=== PATIENT | female | born 1990 | race Asian ===

== ENCOUNTER 2016-11-24 19:21 | Inpatient (IN) | payer MEDICAID ==
[~2016-11-24] VITALS: Ht 167.6 cm; Wt 78.2 kg
[2016-11-24 20:35] VITALS: BP 113/71; PULSE 76; RESP 18; Ht 167.6 cm; Wt 78.2 kg
[2016-11-24] MEDS ORDERED: PREN-93 PO (20:37)
[2016-11-24] MEDS ORDERED: MISOPROSTOL 200 MCG TAB PR PRN (21:00)
[2016-11-24] MEDS ORDERED: AMPICILLIN 2 GM/NS (PMX) 100 ML IV ONE (21:00)
[2016-11-24] MEDS ORDERED: HYDROCODONE/APAP (5/325) TAB PO PRN (21:00)
[2016-11-24] MEDS ORDERED: OXYTOCIN 30 UNITS/LR 500 ML IV SCH (21:00)
[2016-11-24] MEDS ORDERED: BUTORPHANOL 2 MG INJ IV PRN ×2 (21:00)
[2016-11-24] MEDS ORDERED: METHYLERGONOVINE 0.2 MG INJ IM PRN (21:00)
[2016-11-24] MEDS ORDERED: IBUPROFEN 600 MG TAB PO PRN (21:00)
[2016-11-24] MEDS ORDERED: LIDOCAINE 1% (MPF) 30 ML INJ INJ PRN (21:00)
[2016-11-24] MEDS ORDERED: OXYTOCIN 30 UNITS/LR 500 ML IV PRN (21:00)
[2016-11-24] MEDS ORDERED: CARBOPROST 250 MCG INJ IM PRN (21:00)
[2016-11-24] MEDS ORDERED: LACTATED RINGER'S 1,000 ML IV PRN (21:00)
[2016-11-24] MEDS: LACTATED RINGER'S 1,000 ML IV SCH ×2 (21:37→23:01)
[2016-11-24 22:17] LABS: BASOPHILS % 0.3 % (0.0-2.0); EOSINOPHILS # 0.1 10^3/ul (0.0-0.5); EOSINOPHILS % 0.8 % (0.0-7.0); HEMATOCRIT 35.1 % (37.0-47.0); LYMPHOCYTES # 2.9 10^3/ul (0.8-2.9); MEAN CORPUSCULAR HEMOGLOBIN 28.6 pg (29.0-33.0); MEAN CORPUSCULAR HGB CONC 34.2 g/dl (32.0-37.0); MEAN CORPUSCULAR VOLUME 83.6 fl (82.0-101.0); MEAN PLATELET VOLUME 11.6 fl (7.4-10.4); MONOCYTE # 0.8 10^3/ul (0.3-0.9); MONOCYTES % 7.9 % (0.0-11.0); NEUTROPHILS % 63.5 % (39.0-77.0); PLATELET COUNT 218 10^3/UL (140-415); RED CELL DISTRIBUTION WIDTH 14.1 % (11.5-14.5); WHITE BLOOD COUNT 10.6 10^3/ul (4.8-10.8)
[2016-11-24 22:21] LABS: ADD UMIC NO; UR ASCORBIC ACID NEGATIVE (NEGATIVE); UR BACTERIA FEW /HPF (NONE SEEN); UR BILIRUBIN (Dip) NEGATIVE (NEGATIVE); UR BLOOD (Dip) NEGATIVE (NEGATIVE); UR CLARITY SLIGHTLY CLOUDY (CLEAR); UR COLOR YELLOW (YELLOW); UR GLUCOSE (Dip) NEGATIVE (NEGATIVE); UR KETONES (Dip) NEGATIVE (NEGATIVE); UR LEUKOCYTE ESTERASE (Dip) NEGATIVE Leu/ul (NEGATIVE); UR MUCUS FEW /HPF (NONE SEEN); UR NITRITE (Dip) NEGATIVE (NEGATIVE); UR RBC 7 /HPF (0-5); UR SPECIFIC GRAVITY (Dip) 1.016 (1.003-1.030); UR SQUAMOUS EPITHELIAL CELL FEW /HPF (FEW); UR TOTAL PROTEIN (Dip) NEGATIVE (NEGATIVE); UR UROBILINOGEN (Dip) NEGATIVE (NEGATIVE)
[2016-11-24 22:32] LABS: INR 0.89; PT RATIO 0.9
[2016-11-24 22:33] LABS: PARTIAL THROMBOPLASTIN TIME 23.7 Sec (25.0-35.0)
[2016-11-25] MEDS ORDERED: AMPICILLIN 1 GM/NS (PMX) 50 ML IV SCH (01:00)
[2016-11-25] MEDS: OXYTOCIN 30 UNITS/LR 500 ML IV SCH ×2 (01:09→01:32)
[2016-11-25] MEDS ORDERED: FENTAnyl 50 MCG/ML VIAL ONE (01:12)
[2016-11-25] MEDS ORDERED: FENTAnyl 50 MCG/ML VIAL IV ONE (01:30)
[2016-11-25] MEDS: DEXTROSE 5%-LR 1,000 ML IV SCH ×2 (01:51→09:51)
--- NOTE | 2016-11-25 01:51 | LDN ---
Date/Time of Note Date/Time of Note DATE: 11/25/16 TIME: 01:49 Delivery Summary 26 y/o G1 with SIUP at 39 2/7 wks delivered a female over mediolateral episiotomy at 01:01. Weight: 3920 (8 lbs 10 oz) Placenta Delivered: Spontaneously Meconium: none Episiotomy: Yes (mediolateral) Estimated blood loss: 250 Sponge & Needle done & correct: Yes All needle counts correct: Yes Any foreign bodies felt in the: No Problems: Infant Delivery Information Sex Sex: female Apgars 1 Minute: 9 5 Minute: 9 10 Minute: 10 Suctioning Nose & mouth suctioned at naif: Yes Umbilical Cord Umbilical cord with: 3 Vessels Cord presentations: no nuchal cord Cord Blood was obtained: Yes EVARISTO COLLAZO Nov 25, 2016 01:51
[2016-11-25] MEDS ORDERED: MISOPROSTOL 200 MCG TAB PR PRN (02:00)
[2016-11-25] MEDS ORDERED: WITCH HAZEL/GLYCERIN PAD PR PRN (02:00)
[2016-11-25] MEDS ORDERED: BENZOCAINE 20% 56 ML SPRAY TOP PRN (02:00)
[2016-11-25] MEDS ORDERED: ONDANSETRON 4 MG INJ IV PRN (02:00)
[2016-11-25] MEDS ORDERED: CARBOPROST 250 MCG INJ IM PRN (02:00)
[2016-11-25] MEDS ORDERED: ZOLPIDEM 5 MG TAB PO PRN (02:00)
[2016-11-25] MEDS ORDERED: METHYLERGONOVINE 0.2 MG INJ IM PRN (02:00)
[2016-11-25] MEDS ORDERED: LANOLIN 7 GM TUBE TOP PRN (02:00)
[2016-11-25] MEDS ORDERED: OXYTOCIN 30 UNITS/LR 500 ML IV PRN (02:00)
[2016-11-25] MEDS ORDERED: OXYCODONE/ASPIRIN (4.88/325) TAB PO PRN (02:00)
[2016-11-25] MEDS ORDERED: DIPHENHYDRAMINE 50 MG INJ IV PRN (02:00)
[2016-11-25] MEDS ORDERED: ACETAMINOPHEN 325 MG TAB PO PRN (02:00)
[2016-11-25] MEDS ORDERED: DIBUCAINE 1% 30 GM OINT PR PRN (02:00)
[2016-11-25 03:35] VITALS: BP 112/64; PULSE 78; RESP 18
--- NOTE | 2016-11-25 04:38 | HP ---
Date/Time of Note Date/Time of Note DATE: 11/25/16 TIME: 04:31 OB - History Hx of Present Free Text/Dictation 26 y/o G1 with SIUP at 39 2/7 wks was admitted for having UCS. She has been receiving her care with Dr. Field. She states good movement. She denies nausea, vomiting, shortness of breath, chest pain, and abdominal pain between contractions, headache, visual changes, vaginal bleeding. I saw and exam the patient before her delivery : 1 Care: Good Care Ultrasounds: Normal mid trimester US Obstetrical Complications: None Past Family/Social History * Past Medical, Surgical, Family and Obstetric Histories reviewed from chart. Blood Type: A+ Rubella: immune RPR/VDRL: Negative GBS Status: Negative HBsAG: Negative OB Admission Exam Vital Signs Vital Signs Vital Signs Date Time Temp Pulse Resp B/P Pulse Ox O2 Delivery O2 Flow Rate FiO2 11/24/16 20:35 98.4 76 18 113/71 Physical Exam Heart: Rhythm Normal Lungs: Clear Abdomen: WNL Extremities: Normal Cervical Dilatation: 10cm Effacement: 100% Station: +1 Membranes: Ruptured Amniotic Fluid: Clear Heart Rate: 140's Accelerations: Accelerations Present Decelerations: No Decelerations Varibility: Moderate Contractions on Admission: < 5 Minutes Apart Intensity: Firm Last 72 hours Lab Results CBC & BMP 11/24/16 21:37 OB Assessment/Plan Other plan: 26 y/o G1 with SIUP at 39 2/7 wks - FHR: No sign of metabolic acidosis- Category I - Continious EFM, toco - CBC, blood type and screen done - Analgesia options with R/B/A discussed in detail with patient. She is not interested - Please see the orders - A+/Rubella: Immune/GBS negative Admission, procedures, expectations, risks and possible complications have been discussed in detail with the patient. Risk of vaginal delivery including but not limited to bleeding, infection, cervical laceration, placental retention, injury to fetus, blood transfusion, blood transfusion related infection, risk of anesthesia, adhesion, cervical laceration, episiotomy/laceration, possible delivery with risk of bleeding, infection, injury to other organs ( bowel, bladder, ureter, vessels, nerves), injury to fetus, blood transfusion, blood transfusion related infection, risk of anesthesia, scar and hernia formation, needs for future , removal of uterus or any other indicated surgery discussed with the patient. She expressed understanding and repeats the risks. All of her questions were answered; all appropriate consents will be signed. PHYSICIAN'S VERIFICATION OF INFORMED CONSENT: The patient was counseled regarding the procedure, its indications, risks, potential complications and alternatives and any questions were answered. Consent was obtained. PLANNED PROCEDURE/TREATMENT: Vaginal delivery with possible vacuum/forceps delivery episiotomy, repair of laceration possible delivery PHYSICIAN'S VERIFICATION OF INFORMED CONSENT FOR BLOOD TRANSFUSION: There is a reasonable possibility that blood transfusion will be necessary as a result of the patient's procedure. 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 Al questions have been answered to the patient's/patients legal representatives satisfaction. INFORMED CONSENT: The patient has been informed of: - The nature of the proposed care, treatment, services, medic- Potential benefits, risks or side effects, including potential problems related to recuperation. - The likelihood of achieving care treatment and service goals. - Reasonable alternatives to the proposed care, treatment and service. - The relevant risks, benefits and side effects related to alternatives, including the possible results of not receiving care, treatment and services. - When indicated, any limitations on the confidentiality of information learned from or about the patient. - If appropriate, the risks, benefits and alternatives of the drugs to be used for sedation/analgesia including moderate sedation. - If appropriate, patient has been provided information on the risks, benefits and alternatives to the transfusion of blood and/or blood products. EVARISTO COLLAZO Nov 25, 2016 04:38
[2016-11-25] MEDS: IBUPROFEN 600 MG TAB PO SCH ×3 (06:02→18:16)
[2016-11-25] MEDS: LACTATED RINGER'S 1,000 ML IV* SCH ×2 (06:03→09:51)
[2016-11-25 08:00] VITALS: BP 100/57; PULSE 78; RESP 17
[2016-11-25] MEDS: PRENATAL VITAMIN PO SCH (09:16)
[2016-11-25 12:00] VITALS: BP 91/60; PULSE 82; RESP 16
[2016-11-25 16:00] VITALS: BP 116/76; PULSE 88; RESP 17
[2016-11-25 20:00] VITALS: BP 97/57; PULSE 86; RESP 20
[2016-11-25] MEDS: SENNA/DOCUSATE NA (8.6MG/50MG) TAB PO PRN (21:59)
[2016-11-26] MEDS: IBUPROFEN 600 MG TAB PO SCH ×4 (01:04→17:46)
[2016-11-26 04:00] VITALS: BP 98/57; PULSE 80; RESP 18
[2016-11-26 08:15] VITALS: BP 98/63; PULSE 76; RESP 16
[2016-11-26] MEDS: PRENATAL VITAMIN PO SCH (08:48)
[2016-11-26 10:29] LABS: BASOPHILS % 0.2 % (0.0-2.0); EOSINOPHILS # 0.2 10^3/ul (0.0-0.5); EOSINOPHILS % 1.6 % (0.0-7.0); HEMATOCRIT 32.5 % (37.0-47.0); HEMOGLOBIN 10.3 g/dl (12.0-16.0); LYMPHOCYTES # 2.8 10^3/ul (0.8-2.9); LYMPHOCYTES % 26.4 % (15.0-51.0); MEAN CORPUSCULAR HEMOGLOBIN 27.6 pg (29.0-33.0); MEAN CORPUSCULAR HGB CONC 31.7 g/dl (32.0-37.0); MEAN CORPUSCULAR VOLUME 87.1 fl (82.0-101.0); MEAN PLATELET VOLUME 11.3 fl (7.4-10.4); MONOCYTE # 0.7 10^3/ul (0.3-0.9); MONOCYTES % 6.4 % (0.0-11.0); NEUTROPHILS % 64.4 % (39.0-77.0); PLATELET COUNT 210 10^3/UL (140-415); RED BLOOD COUNT 3.73 10^6/ul (4.20-5.40); RED CELL DISTRIBUTION WIDTH 14.6 % (11.5-14.5); WHITE BLOOD COUNT 10.7 10^3/ul (4.8-10.8)
[2016-11-26 12:34] LABS: RUBELLA ANTIBODY - IGG <0.90 index
[2016-11-26 16:00] VITALS: BP 104/74; PULSE 78; RESP 17
[2016-11-26] MEDS ORDERED: IBUP-1542 PO ×2 (18:56→20:06)
--- NOTE | 2016-11-26 18:57 | PD.PPDC ---
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
[2016-11-26 19:45] VITALS: BP 101/67; PULSE 84; RESP 18
--- NOTE | 2016-11-26 19:56 | DS ---
Date/Time of Note Date/Time of Note home next day DATE: 11/26/16 TIME: 19:55 Obstetrical Discharge Record Final Diagnosis Final Diagnosis: Term delivered Other Final Diagnosis S/P vaginal delivery Vaginal Delivery Obstetrical Delivery: Spontaneous Condition on Discharge Physical Assessment Last Vitals: see nurses notes Voiding: Yes Bowel Movement: Yes Breast: Soft, non-tender, Filling Fundus: Firm Abdomen and Incision: soft BS + Episiotomy: Healing Calf Tenderness: No Patient Condition: Good ALEK SHRESTHA MD Nov 26, 2016 19:56
[2016-11-27] MEDS: IBUPROFEN 600 MG TAB PO SCH ×3 (03:11→12:11)
[2016-11-27 03:48] VITALS: BP 107/65; PULSE 84; RESP 18
[2016-11-27 07:30] VITALS: BP 113/74; PULSE 79; RESP 18
[2016-11-27] MEDS ORDERED: MEASLES,MUMPS,RUBELLA VACCINE INJ SC* ONE (09:00)
[2016-11-27] MEDS ORDERED: DIPHTH/TET/ACEL PERTUSS (ADULT) 0.5 ML VIAL IM* ONE (09:00)
[2016-11-27] MEDS: PRENATAL VITAMIN PO SCH (09:23)
[2016-11-27] MEDS: SENNA/DOCUSATE NA (8.6MG/50MG) TAB PO PRN (09:23)
== END 2016-11-27 13:30 | disposition home or self-care (01) | DRG 775 ==
LOC: L-D 19:21 → OBT 19:21 → L-D 20:27 → OBT 21:15 → L-D 22:58 → PP1 11-25 03:27
PROVIDERS: ADMIT Obstetrics & Gynecology; ATTEND Obstetrics & Gynecology
PROC: 10E0XZZ Delivery of Products of Conception, External Approach (ICD-10-PCS; principal; 2016-11-25)
PROC: 0W8NXZZ Division of Female Perineum, External Approach (ICD-10-PCS; 2016-11-25)
PROC: 3E033VJ Introduction of Other Hormone into Peripheral Vein, Percutaneous Approach (ICD-10-PCS; 2016-11-25)
DX: O80 Encounter for full-term uncomplicated delivery (principal); Z37.0 Single live birth; Z3A.39 39 weeks gestation of pregnancy
CPT/HCPCS: 36415; 81001; 81003; 84112; 85025; 85610; 85730; 86592; 86762; 86900; 86901; 87086; 87340; 90715; 96360; 99464; G0463; J0290; J2590; J3010; J7120; J7121

== ENCOUNTER 2018-03-01 16:31 | Outpatient (CLI) | END 2018-03-01 20:00 | disposition home or self-care (01) ==

== ENCOUNTER 2018-03-08 08:40 | Inpatient (IN) | END 2018-03-10 14:30 | disposition home or self-care (01) | DRG 833 ==

== ENCOUNTER 2018-04-04 09:30 | Inpatient (IN) | END 2018-04-05 16:45 | disposition home or self-care (01) | DRG 831 ==

== ENCOUNTER 2018-04-27 20:20 | Inpatient (IN) | payer MEDICAID ==
[~2018-04-27] VITALS: Ht 167.6 cm; Wt 74.9 kg
[~2018-04-27 20:20] MED LIST: NIFE10CA PO; PREN-93 PO
[2018-04-27] MEDS ORDERED: ACETAMINOPHEN 325 MG TAB PO PRN (21:30)
[2018-04-27] MEDS ORDERED: MAGNESIUM SULFATE 4 GM/100 ML 100 ML IV ONE (21:30)
[2018-04-27] MEDS ORDERED: AL HYDROX/MG HYDROX/SIMETH 30 ML CUP PO PRN (21:30)
[2018-04-27] MEDS ORDERED: ONDANSETRON 4 MG INJ IV PRN (21:30)
[2018-04-27] MEDS: LACTATED RINGER'S 1,000 ML IV SCH (22:07)
[2018-04-27] MEDS: MAGNESIUM SULFATE 20 GM/500 ML 500 ML IV SCH (22:49)
[2018-04-28] MEDS: BETAMET NA PHOS/AC(6 MG/ML) 2 ML INJ SYG IM SCH (00:59)
[2018-04-28 01:21] VITALS: Ht 167.6 cm; Wt 74.9 kg
[2018-04-28] MEDS: PRENATAL VITAMIN PO SCH (08:29)
[2018-04-28] MEDS: DOCUSATE SODIUM 100 MG CAP PO SCH ×2 (08:29→22:00)
[2018-04-28] MEDS: MAGNESIUM SULFATE 20 GM/500 ML 500 ML IV SCH ×2 (08:36→18:28)
[2018-04-28] MEDS: LACTATED RINGER'S 1,000 ML IV SCH ×2 (10:41→23:36)
--- NOTE | 2018-04-28 15:02 | HP ---
Date/Time of Note Date/Time of Note DATE: 04/28/18 TIME: 14:57 OB - History Hx of Present Free Text/Dictation 28-year-old female 2 para 1 at 31 weeks gestation admitted complaining of onset of vaginal bleeding in p.m. of the admission day Upon examination and OB triage minimal vaginal bleeding was observed Patient has history of complete placenta previa and hospitalization in February 2018 Patient was told by perinatology clinic that placenta previa is resolved Last Menstrual Period: August 15, 2017 : 2 Para: 1 Care: Good Care Ultrasounds: Normal mid trimester US Obstetrical Complications: Other (Placenta previa) Medical Complications: None Past Family/Social History * Past Medical, Surgical, Family and Obstetric Histories reviewed from chart. Blood Type: A+ Rubella: immune RPR/VDRL: Negative GBS Status: Unknown HBsAG: Negative OB Admission Exam Physical Exam HEENT: WNL Heart: Rhythm Normal Lungs: Clear, Equal Abdomen: WNL Extremities: Normal Reflexes: Normal Membranes: Intact Heart Rate: 140's Accelerations: Accelerations Present Decelerations: No Decelerations Varibility: Moderate Contractions on Admission: 6-10 Minutes Apart Date/Time Contractions Began: April 27, 1999 2:41 PM Frequency of Contractions: Every 5-10 minutes Duration: Over 40 seconds Intensity: Mild Last 72 hours Lab Results CBC & BMP 04/27/18 21:55 Magnesium Level Test 04/28/18 04:03 04/28/18 10:10 Magnesium Level 5.2 *H 5.8 *H OB Assessment/Plan Reason for admission: labor Other Assessment: Placenta previa that could have been resolved 34+ weeks gestation Other plan: She was admitted for treatment of contractions Procardia was ALEK Murillo MD Apr 28, 2018 15:02
--- NOTE | 2018-04-28 15:03 | PN ---
Date/Time of Note Date/Time of Note DATE: 04/28/18 TIME: 15:02 OB Subjective Subjective Subjective No more complaint of vaginal bleeding OB Objective Objective Objective Vital signs are stable as well as general physical exam On electronic monitoring no uterine contractions seen OB Assessment/Plan Reason for admission: labor Other Assessment: Possible placenta previa at 34+ weeks of vaginal bleeding Other plan: Continue tocolysis of contraction Consider giving steroids Obtained perinatology ultrasound results ALEK SHRESTHA MD Apr 28, 2018 15:03
[2018-04-29] MEDS: BETAMET NA PHOS/AC(6 MG/ML) 2 ML INJ SYG IM SCH (00:33)
[2018-04-29] MEDS: MAGNESIUM SULFATE 20 GM/500 ML 500 ML IV SCH ×2 (04:04→13:20)
[2018-04-29] MEDS: DOCUSATE SODIUM 100 MG CAP PO SCH (09:09)
[2018-04-29] MEDS: PRENATAL VITAMIN PO SCH (09:09)
[2018-04-29] MEDS ORDERED: NIFEdipine 10 MG CAP PO SCH (14:00)
--- NOTE | 2018-04-29 15:07 | DS ---
Date/Time of Note Date/Time of Note DATE: 04/29/18 TIME: 15:06 Obstetrical Discharge Record Final Diagnosis Final Diagnosis: not delivered Other Final Diagnosis uterine contractions Complications Labor Third Trimester Bleeding: Previa Condition on Discharge Physical Assessment Last Vitals: See nurse's note Voiding: Yes Bowel Movement: Yes Breast: Soft, non-tender, Filling Fundus: Other () Abdomen and Incision: Abdomen is gravid fundal height is 35 heart tones are reactive Episiotomy: Not applicable Calf Tenderness: No Patient Condition: Good ALEK SHRESTHA MD Apr 29, 2018 15:07
--- NOTE | 2018-04-29 15:09 | DS ---
Date/Time of Note Date/Time of Note DATE: 04/29/18 TIME: 15:07 Discharge Summary Admission/Discharge Info Admit Date/Time Apr 27, 2018 at 21:15 Discharge Date/Time April 29, 2018 Discharge Diagnosis contractions possible previa Patient Condition: Good Hx of Present Illness 28-year-old female had contractions and vaginal bleeding Tocolysis of uterine contraction was performed and patient stayed stable Hospital Course Hospital course remained uncomplicated patient tolerated diet well Discharge home on his second hospitalization day with good prognosis and cond ition Home Meds Active Scripts Nifedipine* (Procardia*) 10 Mg Capsule, 20 MG PO Q6, #120 CAP 4 Refills Prov:ALEK SHRESTHA MD 04/05/18 Reported Medications Vit No.124/Iron/FA ( Vitamin Tablet) 1 Each Tablet, 1 EACH PO, TAB 11/24/16 Follow-up Plan Refer to clinic following day for follow-up Primary Care Provider Care Physician No Primary Time spent on discharge: > 30 minutes Pending Labs Laboratory Tests Test 04/28/18 16:01 04/28/18 21:54 04/29/18 04:21 04/29/18 09:49 Magnesium 6.1 5.9 6.3 6.2 Level mg/dl (1.7-2.5) mg/dl (1.7-2.5 mg/dl (1.7-2.5 mg/dl (1.7-2.5 ) ) ) ALEK SHRESTHA MD Apr 29, 2018 15:09
--- NOTE | 2018-04-29 15:12 | PD.PPDC ---
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 possible previa Condition [id number] Patient Condition: Uygjs0m Good Activity/Restrictions [id number] Activity: Gruuk9m Bedrest May Shower [id number] Restrictions: [id number] No Exercising No Lifting Nothing in the Vagina No [place] Follow-up Follow-up with Physician: 1, Day/Days (In clinic) Return to clinic for Comment: Pelvic and bedrest until delivery ALEK SHRESTHA MD Apr 29, 2018 15:12
[2018-04-29] MEDS ORDERED: NIFE10CA PO (15:13)
== END 2018-04-29 16:03 | disposition home or self-care (01) | DRG 832 ==
LOC: OBT 20:20 → L-D 20:20 → OBT 21:15 → L-D 21:15 → PP1 23:34
PROVIDERS: ADMIT Obstetrics & Gynecology; ATTEND Obstetrics & Gynecology
DX: O46.93 Antepartum hemorrhage, unspecified, third trimester (principal); O47.03 False labor before 37 completed weeks of gestation, third trimester; Z3A.31 31 weeks gestation of pregnancy
CPT/HCPCS: 81001; 83735; 85025; 85610; 85730; 86850; 86900; 86901; 87086; G0463; J0702; J3475; J7120

== ENCOUNTER 2018-04-30 16:56 | Inpatient (IN) | payer MEDICAID ==
[~2018-04-30] VITALS: Ht 167.6 cm; Wt 75.5 kg
[2018-04-30 17:12] VITALS: BP 99/61; PULSE 93; Ht 167.6 cm; Wt 75.5 kg
[2018-04-30] MEDS ORDERED: TERBUTALINE 1 MG/ML INJ SC ONE ×2 (18:30→21:00)
[2018-04-30] MEDS: LACTATED RINGER'S 1,000 ML IV SCH (21:24)
[2018-05-01] MEDS: LACTATED RINGER'S 1,000 ML IV SCH ×2 (03:14→10:57)
[2018-05-01] MEDS ORDERED: NIFEdipine 10 MG CAP PO SCH (09:00)
[2018-05-01] MEDS ORDERED: PRENATAL VITAMIN PO SCH (09:00)
--- NOTE | 2018-05-01 16:47 | HP ---
Date/Time of Note Date/Time of Note Late entry DATE: 05/01/18 TIME: 16:35 OB - History Hx of Present Free Text/Dictation 28-year-old female 2 para 1 readmitted for complaint of vaginal spotting Patient was seen in the clinic and was sent from clinic for evaluation Discharge from hospital day prior Last Menstrual Period: August 15, 2017 : 2 Para: 1 Care: Good Care Ultrasounds: Abnormal US findings Abnormal Ultrasound Findings: Placenta previa Most recent ultrasound showing marginal previa Obstetrical Complications: Other (Placenta previa) Medical Complications: None Past Family/Social History * Past Medical, Surgical, Family and Obstetric Histories reviewed from [facility]. Blood Type: A+ Rubella: immune RPR/VDRL: Negative GBS Status: Unknown HBsAG: Negative OB Admission Exam Vital Signs Vital Signs Vital Signs Date Temp Pulse Resp B/P (MAP) Pulse Ox O2 O2 Flow FiO2 Time Delivery Rate 04/30/18 98.3 93 99/61 (74) Room Air 17:12 Physical Exam HEENT: WNL Heart: Rhythm Normal Lungs: Clear, Equal Abdomen: WNL Extremities: Normal Reflexes: Normal Cervical Dilatation: None (Vaginal exam deferred) Membranes: Intact Heart Rate: 140's Accelerations: Accelerations Present Decelerations: No Decelerations Varibility: Marked Contractions on Admission: 6-10 Minutes Apart Date/Time Contractions Began: 04/30/2018 Frequency of Contractions: Every 6 1015 minutes Duration: Over 30 seconds Intensity: Mild Last 72 hours Lab Results CBC & BMP 04/30/18 20:40 OB Assessment/Plan Other Assessment: Vaginal spotting 35+ weeks gestation Other plan: We will continue to observe on p.o. nifedipine Additional subcutaneous terbutaline was given to stop the contractions Will monitor vaginal bleeding and uterine contraction ALEK SHRESTHA MD May 01, 2018 16:45
--- NOTE | 2018-05-01 16:49 | DS ---
Date/Time of Note Date/Time of Note DATE: 05/01/18 TIME: 16:48 Obstetrical Discharge Record Final Diagnosis Final Diagnosis: not delivered Other Final Diagnosis 35+ weeks gestation uterine contractions and vaginal spotting Complications Third Trimester Bleeding: Previa Tocolytics: Other (Nifedipine) Condition on Discharge Physical Assessment Last Vitals: See nurse's notes Voiding: Yes Bowel Movement: Yes Breast: Soft, non-tender, Filling Fundus: Other () Abdomen and Incision: Abdomen is gravid fundal height is 36 heart tones are reactive Episiotomy: Not applicable Calf Tenderness: No Patient Condition: Good (Patient totally stopped vaginal bleeding and uterine contractions, will follow as outpatient) ALEK SHRESTHA MD May 01, 2018 16:49
--- NOTE | 2018-05-01 16:52 | PD.PPDC ---
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 Provider Information Physician Information 48-year-old female admitted for vaginal spotting and contractions which were resolved Diagnosis [id number] Final Diagnosis: Xekar7g contractions and vaginal spotting, marginal placenta previa Condition [id number] Patient Condition: Zglak9e Good (Patient totally stopped vaginal bleeding and uterine contractions, will follow as outpatient) Diet Gxcpa6Tm Diet: Fjebk4k Resume Regular Diet Activity/Restrictions [id number] Activity: Ilgen8d Bedrest May be up to bathroom May be up for meals May Shower [id number] Restrictions: Bzozr6y No Exercising No Lifting Minimize Walking Nothing in the Vagina No [place] No Tampons, douche Follow-up Follow-up with Physician: 3, Day/Days (In OB triage for nonstress test) Return to clinic for Comment: Refer back for profuse vaginal bleeding Patient was notified that the section is scheduled for 05/13 ALEK SHRESTHA MD May 01, 2018 16:52
== END 2018-05-01 21:20 | disposition home or self-care (01) | DRG 833 ==
LOC: OBT 16:56 → L-D 16:57 → OBT 20:34 → PP1 22:47
PROVIDERS: ADMIT Obstetrics & Gynecology; ATTEND Obstetrics & Gynecology
DX: O47.03 False labor before 37 completed weeks of gestation, third trimester (principal); Z3A.35 35 weeks gestation of pregnancy
CPT/HCPCS: 76818; 81001; 85025; 85610; 85730; G0463; J3105; J7120

== ENCOUNTER 2018-05-04 08:58 | Outpatient (CLI) | payer MEDICAID ==
[~2018-05-04] VITALS: Ht 167.6 cm; Wt 72.5 kg
[2018-05-04 09:18] VITALS: Ht 167.6 cm; Wt 72.5 kg
[2018-05-04 09:19] VITALS: BP 98/63; PULSE 94; RESP 20
--- NOTE | 2018-05-04 10:13 | PN ---
Triage Information Date/Time Reason for visit: Marginal plaventa for NST BPP Weeks of Gestation 35+ /Para 2/1 Diabetes: none Hypertention: none Objective Vital Signs Date Temp Pulse Resp B/P (MAP) Pulse Ox O2 O2 Flow FiO2 Time Delivery Rate 05/04/18 97.9 94 20 98/63 (75) 98 Room Air 09:19 Heart Rate: 140's Contractions: None Disposition: Discharge Assessment/Plan NO VB No CTXs BPP 01/20 Questions answered Follow up with provider Precautions discussed PAMELA MARAVILLA M.D. May 04, 2018 10:13
--- NOTE | 2018-05-04 10:20 | TRIAGE ---
OB Triage Datetime Report Generated by CPN: 05/04/2018 10:18 Datetime: 05/04/2018 09:41 Labor Evaluation Frequency: 0 Pattern: Normal: <= 5 Contractions in 10 Minutes Resting Tone [place]: Relaxed Heart Rate FHR Baseline Rate: 140 Monitor Mode: External US Variability: Moderate 6-25 bpm Accelerations: 15X15 Decelerations: None Category: Category I Datetime: 05/04/2018 09:13 Stage of : OB Triage Assessment Type: Triage Maternal Assessment Level of Consciousness: Fully Conscious DTR's/Clonus: DTRs 2+; No Clonus Headache: Denies Blurred Vision: No Respiratory Effort: Unlabored; Regular Rhythm; Equal Expansion Breath Sounds, Left: Clear and Equal Breath Sounds, Right: Clear and Equal Nausea/Vomiting: Denies RUQ Epigastric Pain: Denies Lower Extremities Edema: None Degree: None Upper Extremities Edema: None Degree: None Facial Edema: None Temperature Route: Oral Fall Risk Assessment History of Falling: (0) No Secondary Diagnosis: (0) No Ambulatory Aid: (0) Bedrest/Nurse Assist IV Therapy: (0) No Gait: (0) Normal/Bedrest/Immobile Mental Status: (0) Oriented to Own Ability Fall Score: 0 Fall Risk Score Definition: No Risk: No action required Pain Assessment Pain Scale: 0 Pain Presence: None/Denies Pain Type: N/A Pain Location: n/a Pain Goal: 0 Pain Relief Measures: Comfort Measures Vaginal Exam Dilatation (cms): Defer Membrane Status: Intact Datetime: 05/04/2018 09:04 Time of Arrival: 05/04/2018 09:04 EGA: 35.5 Arrived By: Ambulatory Arrived From: Home Chief Complaint: Follow up NST for previa Movement: Present Contractions: Denies/Absent Rupture of Membranes: Denies Vaginal Bleeding: None Vaginal Discharge: Denies Recent Sexual Intercouse: Denies Abdominal Trauma: Not Applicable Patient Complaints: None Time Provider Notified: 05/04/2018 09:34 Provider Notified: Emir Initial Plan: NST Datetime: 05/01/2018 17:10 Stage of : Antepartum Maternal Assessment Level of Consciousness: Fully Conscious Headache: Denies Nausea/Vomiting: Denies Temperature Route: Oral Pain Assessment Pain Scale: 0 Pain Presence: None/Denies Membrane Status: Intact Vaginal Bleeding: None Datetime: 05/01/2018 17:07 Stage of : Antepartum Datetime: 05/01/2018 16:09 Stage of : Antepartum Maternal Assessment Level of Consciousness: Fully Conscious Headache: Denies Nausea/Vomiting: Denies Labor Evaluation Frequency: 0/hr Monitor Mode: External Heart Rate FHR Baseline Rate: 140 Monitor Mode: External US Variability: Moderate 6-25 bpm Accelerations: 15X15 Decelerations: None Pain Presence: None/Denies Datetime: 05/01/2018 15:40 Labor Evaluation Frequency: 0/hr Monitor Mode: External Heart Rate FHR Baseline Rate: 145 Monitor Mode: External US Variability: Moderate 6-25 bpm Accelerations: 15X15 Decelerations: None Datetime: 05/01/2018 15:04 Stage of : Antepartum Maternal Assessment Level of Consciousness: Fully Conscious Headache: Denies Nausea/Vomiting: Denies Labor Evaluation Frequency: 0/hr Monitor Mode: External Heart Rate FHR Baseline Rate: 135 Monitor Mode: External US Variability: Moderate 6-25 bpm Accelerations: 15X15 Decelerations: None Pain Presence: None/Denies Datetime: 05/01/2018 14:45 Stage of : Antepartum Maternal Assessment Level of Consciousness: Fully Conscious Headache: Denies Blurred Vision: No Respiratory Effort: Unlabored Nausea/Vomiting: Denies RUQ Epigastric Pain: Denies Labor Evaluation Frequency: 0 Monitor Mode: External Resting Tone [place]: Relaxed Pain Presence: None/Denies Vaginal Bleeding: None Datetime: 05/01/2018 14:31 Heart Rate FHR Baseline Rate: 135 Monitor Mode: External US Variability: Moderate 6-25 bpm Accelerations: 15X15 Decelerations: None Datetime: 05/01/2018 14:01 Stage of : Antepartum Maternal Assessment Level of Consciousness: Fully Conscious Headache: Denies Blurred Vision: No Respiratory Effort: Unlabored Nausea/Vomiting: Denies RUQ Epigastric Pain: Denies Labor Evaluation Frequency: 0/hr Monitor Mode: External Heart Rate FHR Baseline Rate: 135 Monitor Mode: External US Variability: Moderate 6-25 bpm Accelerations: 15X15 Decelerations: None Pain Presence: None/Denies Datetime: 05/01/2018 13:04 Labor Evaluation Frequency: 0/hr Monitor Mode: External Heart Rate FHR Baseline Rate: 135 Monitor Mode: External US Variability: Moderate 6-25 bpm Accelerations: 15X15 Decelerations: None Pain Presence: None/Denies Datetime: 05/01/2018 12:01 Stage of : Antepartum Maternal Assessment Level of Consciousness: Fully Conscious Headache: Denies Nausea/Vomiting: Denies RUQ Epigastric Pain: Denies Resting Tone [place]: Relaxed Pain Assessment Pain Scale: 0 Pain Presence: None/Denies Vaginal Bleeding: None Datetime: 05/01/2018 11:05 Stage of : Antepartum Labor Evaluation Frequency: 0/hr Monitor Mode: External Heart Rate FHR Baseline Rate: 150 Variability: Moderate 6-25 bpm Accelerations: 15X15 Decelerations: None Datetime: 05/01/2018 10:50 Pain Presence: None/Denies Datetime: 05/01/2018 10:11 Labor Evaluation Frequency: 0/hr Monitor Mode: External Heart Rate FHR Baseline Rate: 145 Monitor Mode: External US Variability: Moderate 6-25 bpm Accelerations: 15X15 Decelerations: None Pain Presence: None/Denies Vaginal Bleeding: None Datetime: 05/01/2018 09:26 Stage of : Antepartum Labor Evaluation Frequency: 0/hr Monitor Mode: External Resting Tone [place]: Relaxed Heart Rate FHR Baseline Rate: 135 Monitor Mode: External US Variability: Moderate 6-25 bpm Accelerations: 15X15 Decelerations: None Pain Presence: None/Denies Datetime: 05/01/2018 08:36 Maternal Assessment Level of Consciousness: Fully Conscious Headache: Denies Blurred Vision: No Respiratory Effort: Unlabored Nausea/Vomiting: Denies RUQ Epigastric Pain: Denies Pain Presence: None/Denies Datetime: 05/01/2018 08:16 Assessment Type: Ongoing Assessment Maternal Assessment Level of Consciousness: Fully Conscious DTR's/Clonus: DTRs 2+; No Clonus Headache: Denies Blurred Vision: No Respiratory Effort: Unlabored; Regular Rhythm; Equal Expansion Breath Sounds, Left: Clear and Equal Breath Sounds, Right: Clear and Equal Nausea/Vomiting: Denies RUQ Epigastric Pain: Denies Lower Extremities Edema: None Upper Extremities Edema: None Facial Edema: None Fall Risk Assessment History of Falling: (0) No Secondary Diagnosis: (0) No Ambulatory Aid: (0) Bedrest/Nurse Assist IV Therapy: (20) Yes (Annotations: lr 125ml/hr) Gait: (0) Normal/Bedrest/Immobile Mental Status: (0) Oriented to Own Ability Fall Score: 20 Fall Risk Score Definition: No Risk: No action required Datetime: 05/01/2018 08:00 Stage of : Antepartum Labor Evaluation Frequency: 4/hr Monitor Mode: External Duration (sec)2399: 50-80 Quality: Mild Resting Tone [place]: Relaxed Heart Rate FHR Baseline Rate: 135 Monitor Mode: External US Variability: Moderate 6-25 bpm Accelerations: 15X15 Decelerations: None Datetime: 05/01/2018 07:50 Resting Tone [place]: Relaxed Contraction Comments: pt. denies uc's or cramping. rn palpates movement Pain Presence: None/Denies Datetime: 05/01/2018 07:36 Labor Evaluation Frequency: occassional Monitor Mode: External Duration (sec)2399: 50 Heart Rate FHR Baseline Rate: 140 Monitor Mode: External US Variability: Moderate 6-25 bpm Accelerations: 15X15 Decelerations: None Datetime: 05/01/2018 07:29 Stage of : Antepartum Temperature Route: Oral Monitor Mode: External Resting Tone [place]: Relaxed Contraction Comments: pt. denies uc's or cramping Pain Presence: None/Denies Vaginal Bleeding: None Datetime: 05/01/2018 07:10 Heart Rate FHR Baseline Rate: 135 Monitor Mode: External US Variability: Moderate 6-25 bpm Accelerations: 15X15 Decelerations: None Datetime: 05/01/2018 07:07 Stage of : Antepartum Respiratory Effort: Unlabored Pain Presence: None/Denies Datetime: 05/01/2018 07:00 Labor Evaluation Frequency: X2 Monitor Mode: External Duration (sec)2399: 90 Quality: Mild Heart Rate FHR Baseline Rate: 125 Monitor Mode: External US FHR Baseline Changes: No Baseline Change Variability: Moderate 6-25 bpm Accelerations: 15X15 Decelerations: None Category: Category I Datetime: 05/01/2018 06:00 Labor Evaluation Frequency: IRREG Monitor Mode: External Duration (sec)2399: 30-120 Quality: Mild Heart Rate FHR Baseline Rate: 130 Monitor Mode: External US FHR Baseline Changes: No Baseline Change Variability: Moderate 6-25 bpm Accelerations: 15X15 Decelerations: None Category: Category I Datetime: 05/01/2018 05:07 Temperature Route: Oral Pain Assessment Pain Scale: 0 Pain Presence: None/Denies Datetime: 05/01/2018 05:00 Labor Evaluation Frequency: X3 Monitor Mode: External Duration (sec)2399: 90-120 Quality: Mild Heart Rate FHR Baseline Rate: 130 Monitor Mode: External US FHR Baseline Changes: No Baseline Change Variability: Moderate 6-25 bpm Accelerations: 15X15 Decelerations: None Category: Category I Datetime: 05/01/2018 04:00 Labor Evaluation Frequency: X1 Monitor Mode: External Duration (sec)2399: 80 Quality: Mild Heart Rate FHR Baseline Rate: 130 Monitor Mode: External US FHR Baseline Changes: No Baseline Change Variability: Moderate 6-25 bpm Accelerations: 15X15 Decelerations: None Category: Category I Datetime: 05/01/2018 03:00 Labor Evaluation Frequency: 0 Monitor Mode: External Heart Rate FHR Baseline Rate: 140 Monitor Mode: External US FHR Baseline Changes: No Baseline Change Variability: Moderate 6-25 bpm Accelerations: 15X15 Decelerations: None Category: Category I Datetime: 05/01/2018 02:00 Labor Evaluation Frequency: 0 Monitor Mode: External Heart Rate FHR Baseline Rate: 140 Monitor Mode: External US FHR Baseline Changes: No Baseline Change Variability: Moderate 6-25 bpm Accelerations: 15X15 Decelerations: None Category: Category I Datetime: 05/01/2018 01:00 Labor Evaluation Frequency: 0 Monitor Mode: External Heart Rate FHR Baseline Rate: 140 Monitor Mode: External US FHR Baseline Changes: No Baseline Change Variability: Moderate 6-25 bpm Accelerations: 15X15 Decelerations: None Category: Category I Datetime: 05/01/2018 00:00 Labor Evaluation Frequency: 0 Monitor Mode: External Heart Rate FHR Baseline Rate: 135 Monitor Mode: External US FHR Baseline Changes: No Baseline Change Variability: Moderate 6-25 bpm Accelerations: 15X15 Decelerations: None Category: Category I Datetime: 04/30/2018 23:05 Temperature Route: Oral Pain Assessment Pain Scale: 0 Pain Presence: None/Denies Datetime: 04/30/2018 23:00 Stage of : Antepartum Datetime: 04/30/2018 22:44 Stage of : Antepartum Datetime: 04/30/2018 22:41 Labor Evaluation Frequency: x4/hr Monitor Mode: External Duration (sec)2399: 60-110 Quality: Mild Resting Tone [place]: Relaxed Heart Rate FHR Baseline Rate: 135 Monitor Mode: External US Variability: Moderate 6-25 bpm Accelerations: 15X15 Decelerations: None Category: Category I Pain Assessment Pain Scale: 0 Pain Presence: None/Denies Pain Type: N/A Datetime: 04/30/2018 21:41 Labor Evaluation Frequency: 3-6 Monitor Mode: External Duration (sec)2399: 50-120 Quality: Mild Resting Tone [place]: Relaxed Heart Rate FHR Baseline Rate: 135 Monitor Mode: External US Variability: Moderate 6-25 bpm Accelerations: 15X15 Decelerations: None Category: Category I Pain Assessment Pain Scale: 0 Pain Presence: None/Denies Pain Type: N/A Datetime: 04/30/2018 20:48 Assessment Type: Admission Assessment Vaginal Bleeding: None Maternal Assessment Level of Consciousness: Fully Conscious DTR's/Clonus: DTRs 2+; No Clonus Headache: Denies Blurred Vision: No Respiratory Effort: Unlabored; Regular Rhythm; Equal Expansion Breath Sounds, Left: Clear and Equal Breath Sounds, Right: Clear and Equal Nausea/Vomiting: Denies RUQ Epigastric Pain: Denies Facial Edema: None Fall Risk Assessment History of Falling: (0) No Secondary Diagnosis: (0) No Ambulatory Aid: (0) Bedrest/Nurse Assist IV Therapy: (0) No Gait: (0) Normal/Bedrest/Immobile Mental Status: (0) Oriented to Own Ability Fall Score: 0 Fall Risk Score Definition: No Risk: No action required Datetime: 04/30/2018 20:46 Time of Arrival: 04/30/2018 20:45 EGA: 35.1 Arrived By: Ambulatory Arrived From: Home Datetime: 04/30/2018 20:40 Labor Evaluation Frequency: 3-6 Monitor Mode: External Duration (sec)2399: 50-100 Quality: Mild Resting Tone [place]: Relaxed Contraction Comments: pt denies feeling any contractions, occasional tightness Heart Rate FHR Baseline Rate: 140 Monitor Mode: External US Variability: Moderate 6-25 bpm Accelerations: 15X15 Decelerations: None Category: Category I Pain Assessment Pain Scale: 0 Pain Presence: None/Denies Pain Type: N/A Datetime: 04/30/2018 19:41 Labor Evaluation Frequency: 4-6 Monitor Mode: External Duration (sec)2399: 40-90 Quality: Mild Resting Tone [place]: Relaxed Contraction Comments: pt denies feeling contractions Heart Rate FHR Baseline Rate: 140 Monitor Mode: External US Variability: Moderate 6-25 bpm Accelerations: 15X15 Decelerations: None Category: Category I Pain Assessment Pain Scale: 0 Pain Presence: None/Denies Pain Type: N/A Datetime: 04/30/2018 18:42 Labor Evaluation Frequency: 5 Monitor Mode: External Duration (sec)2399: 40-60 Quality: Mild Pattern: Normal: <= 5 Contractions in 10 Minutes Resting Tone [place]: Relaxed Heart Rate FHR Baseline Rate: 140 Monitor Mode: External US FHR Baseline Changes: No Baseline Change Variability: Moderate 6-25 bpm Accelerations: 15X15 Decelerations: None Category: Category I Pain Assessment Pain Scale: 0 Pain Presence: None/Denies Pain Type: N/A Pain Goal: 0 Datetime: 04/30/2018 18:11 Labor Evaluation Frequency: X4 Monitor Mode: External Duration (sec)2399: 40-60 Quality: Mild Pattern: Normal: <= 5 Contractions in 10 Minutes Resting Tone [place]: Relaxed Heart Rate FHR Baseline Rate: 140 Monitor Mode: External US FHR Baseline Changes: No Baseline Change Variability: Moderate 6-25 bpm Accelerations: 15X15 Decelerations: None Category: Category I Pain Assessment Pain Scale: 0 Pain Presence: None/Denies Pain Type: N/A Pain Goal: 0 Datetime: 04/30/2018 17:40 Labor Evaluation Frequency: 2-10 Monitor Mode: External Duration (sec)2399: 60-80 Quality: Mild Pattern: Normal: <= 5 Contractions in 10 Minutes Resting Tone [place]: Relaxed Heart Rate FHR Baseline Rate: 140 Monitor Mode: External US FHR Baseline Changes: No Baseline Change Variability: Moderate 6-25 bpm Accelerations: 15X15 Decelerations: None Category: Category I Pain Assessment Pain Scale: 0 Pain Presence: None/Denies Pain Type: N/A Pain Goal: 0 Datetime: 04/30/2018 17:09 Stage of : OB Triage Maternal Assessment Level of Consciousness: Fully Conscious DTR's/Clonus: DTRs 2+; No Clonus Headache: Denies Blurred Vision: No Respiratory Effort: Unlabored; Regular Rhythm; Equal Expansion Nausea/Vomiting: Denies RUQ Epigastric Pain: Denies Lower Extremities Edema: None Degree: None Upper Extremities Edema: None Degree: None Facial Edema: None Temperature Route: Axillary Fall Risk Assessment History of Falling: (0) No Secondary Diagnosis: (0) No Ambulatory Aid: (0) Bedrest/Nurse Assist IV Therapy: (0) No Gait: (0) Normal/Bedrest/Immobile Mental Status: (0) Oriented to Own Ability Fall Score: 0 Fall Risk Score Definition: No Risk: No action required Datetime: 04/30/2018 17:05 Time of Arrival: 04/30/2018 16:46 EGA: 35.1 Arrived By: Ambulatory Arrived From: Dr. Villalta Movement: Present Rupture of Membranes: Denies Vaginal Bleeding: None Vaginal Discharge: Denies Recent Sexual Intercouse: Denies Abdominal Trauma: Not Applicable Patient Complaints: Other Initial Plan: EFM, UA Datetime: 04/29/2018 15:37 Stage of : Antepartum Datetime: 04/29/2018 15:20 Stage of : Antepartum Labor Evaluation Frequency: 0 Monitor Mode: External Resting Tone [place]: Relaxed Heart Rate FHR Baseline Rate: 140 Monitor Mode: External US Variability: Moderate 6-25 bpm Accelerations: 15X15 Decelerations: None Category: Category I Pain Assessment Pain Scale: 0 Pain Presence: None/Denies Pain Type: N/A Membrane Status: Intact Datetime: 04/29/2018 15:00 Stage of : Antepartum Labor Evaluation Frequency: 0 Monitor Mode: External Resting Tone [place]: Relaxed Heart Rate FHR Baseline Rate: 140 Monitor Mode: External US Variability: Moderate 6-25 bpm Accelerations: 15X15 Decelerations: None Category: Category I Pain Assessment Pain Scale: 0 Pain Presence: None/Denies Pain Type: N/A Membrane Status: Intact Datetime: 04/29/2018 14:00 Stage of : Antepartum Labor Evaluation Frequency: 0 Monitor Mode: External Resting Tone [place]: Relaxed Heart Rate FHR Baseline Rate: 125 Monitor Mode: External US Variability: Moderate 6-25 bpm Accelerations: 15X15 Decelerations: None Category: Category I Pain Assessment Pain Scale: 0 Pain Presence: None/Denies Pain Type: N/A Membrane Status: Intact Datetime: 04/29/2018 13:00 Stage of : Antepartum Labor Evaluation Frequency: 0 Monitor Mode: External Resting Tone [place]: Relaxed Heart Rate FHR Baseline Rate: 135 Monitor Mode: External US Variability: Moderate 6-25 bpm Accelerations: 15X15 Decelerations: None Category: Category I Pain Assessment Pain Scale: 0 Pain Presence: None/Denies Pain Type: N/A Membrane Status: Intact Datetime: 04/29/2018 12:00 Stage of : Antepartum Labor Evaluation Frequency: 0 Monitor Mode: External Resting Tone [place]: Relaxed Heart Rate FHR Baseline Rate: 135 Monitor Mode: External US Variability: Moderate 6-25 bpm Accelerations: 15X15 Decelerations: None Category: Category I Pain Assessment Pain Scale: 0 Pain Presence: None/Denies Pain Type: N/A Membrane Status: Intact Datetime: 04/29/2018 11:00 Stage of : Antepartum Labor Evaluation Frequency: 0 Monitor Mode: External Resting Tone [place]: Relaxed Heart Rate FHR Baseline Rate: 130 Monitor Mode: External US Variability: Moderate 6-25 bpm Accelerations: 15X15 Decelerations: None Category: Category I Pain Assessment Pain Scale: 0 Pain Presence: None/Denies Pain Type: N/A Membrane Status: Intact Datetime: 04/29/2018 10:00 Stage of : Antepartum Labor Evaluation Frequency: 0 Monitor Mode: External Resting Tone [place]: Relaxed Heart Rate FHR Baseline Rate: 135 Monitor Mode: External US Variability: Moderate 6-25 bpm Accelerations: 15X15 Decelerations: None Category: Category I Pain Assessment Pain Scale: 0 Pain Presence: None/Denies Pain Type: N/A Membrane Status: Intact Datetime: 04/29/2018 09:00 Stage of : Antepartum Labor Evaluation Frequency: 0 Monitor Mode: External Resting Tone [place]: Relaxed Heart Rate FHR Baseline Rate: 125 Monitor Mode: External US Variability: Moderate 6-25 bpm Accelerations: 15X15 Decelerations: None Category: Category I Pain Assessment Pain Scale: 0 Pain Presence: None/Denies Pain Type: N/A Membrane Status: Intact Datetime: 04/29/2018 08:18 Stage of : Antepartum Temperature Route: Oral Datetime: 04/29/2018 08:00 Stage of : Antepartum Labor Evaluation Frequency: 0 Monitor Mode: External Resting Tone [place]: Relaxed Heart Rate FHR Baseline Rate: 130 Monitor Mode: External US Variability: Moderate 6-25 bpm Accelerations: 15X15 Decelerations: None Category: Category I Pain Assessment Pain Scale: 0 Pain Presence: None/Denies Pain Type: N/A Membrane Status: Intact Datetime: 04/29/2018 07:48 Assessment Type: Ongoing Assessment Maternal Assessment Level of Consciousness: Fully Conscious DTR's/Clonus: DTRs 2+; No Clonus Headache: Denies Blurred Vision: No Respiratory Effort: Unlabored; Regular Rhythm; Equal Expansion Breath Sounds, Left: Clear and Equal Breath Sounds, Right: Clear and Equal Nausea/Vomiting: Denies RUQ Epigastric Pain: Denies Lower Extremities Edema: None Degree: None Upper Extremities Edema: None Degree: None Facial Edema: None Fall Risk Assessment History of Falling: (0) No Secondary Diagnosis: (0) No Ambulatory Aid: (0) Bedrest/Nurse Assist IV Therapy: (20) Yes Gait: (0) Normal/Bedrest/Immobile Mental Status: (0) Oriented to Own Ability Fall Score: 20 Fall Risk Score Definition: No Risk: No action required Datetime: 04/29/2018 07:30 Stage of : Antepartum Labor Evaluation Frequency: 0 Monitor Mode: External Resting Tone [place]: Relaxed Heart Rate FHR Baseline Rate: 130 Monitor Mode: External US Variability: Moderate 6-25 bpm Accelerations: 15X15 Decelerations: None Category: Category I Pain Assessment Pain Scale: 0 Pain Presence: None/Denies Pain Type: N/A Membrane Status: Intact Datetime: 04/29/2018 06:00 Labor Evaluation Frequency: 0 Monitor Mode: External Duration (sec)2399: DENIES Resting Tone [place]: Relaxed Heart Rate FHR Baseline Rate: 135 Monitor Mode: External US Variability: Moderate 6-25 bpm Accelerations: 15X15 Decelerations: None Category: Category I Pain Presence: None/Denies Datetime: 04/29/2018 05:00 Labor Evaluation Frequency: 0 Monitor Mode: External Duration (sec)2399: denies Resting Tone [place]: Relaxed Heart Rate FHR Baseline Rate: 140 Monitor Mode: External US Variability: Moderate 6-25 bpm Accelerations: 15X15 Decelerations: None Category: Category I Pain Presence: None/Denies Datetime: 04/29/2018 04:00 Labor Evaluation Frequency: 0 Monitor Mode: External Duration (sec)2399: denies Resting Tone [place]: Relaxed Heart Rate FHR Baseline Rate: 135 Monitor Mode: External US Variability: Moderate 6-25 bpm Accelerations: 15X15 Decelerations: None Category: Category I Pain Presence: None/Denies Datetime: 04/29/2018 03:00 Labor Evaluation Frequency: 0 Monitor Mode: External Resting Tone [place]: Relaxed Heart Rate FHR Baseline Rate: 135 Monitor Mode: External US Variability: Moderate 6-25 bpm Accelerations: 15X15 Decelerations: None Category: Category I Pain Presence: None/Denies Datetime: 04/29/2018 02:00 Labor Evaluation Frequency: 0 Monitor Mode: External Resting Tone [place]: Relaxed Heart Rate FHR Baseline Rate: 135 Monitor Mode: External US Variability: Moderate 6-25 bpm Accelerations: 15X15 Decelerations: None Category: Category I Pain Presence: None/Denies Datetime: 04/29/2018 01:00 Labor Evaluation Frequency: X1 Monitor Mode: External Duration (sec)2399: DENIES Quality: Mild Resting Tone [place]: Relaxed Heart Rate FHR Baseline Rate: 145 Monitor Mode: External US Variability: Moderate 6-25 bpm Accelerations: 15X15 Decelerations: None Category: Category I Pain Presence: None/Denies Datetime: 04/29/2018 00:00 Heart Rate FHR Baseline Rate: 135 Monitor Mode: External US Variability: Moderate 6-25 bpm Accelerations: 10X10 Decelerations: None Category: Category II Datetime: 04/28/2018 23:00 Labor Evaluation Frequency: 0 Monitor Mode: External Duration (sec)2399: DENIES Resting Tone [place]: Relaxed Heart Rate FHR Baseline Rate: 135 Monitor Mode: External US Variability: Moderate 6-25 bpm Accelerations: 15X15 Decelerations: None Category: Category I Pain Presence: None/Denies Datetime: 04/28/2018 22:00 Labor Evaluation Frequency: 0 Monitor Mode: External Duration (sec)2399: DENIES Resting Tone [place]: Relaxed Heart Rate FHR Baseline Rate: 130 Monitor Mode: External US Variability: Moderate 6-25 bpm Accelerations: 15X15 Decelerations: None Category: Category I Pain Presence: None/Denies Datetime: 04/28/2018 21:03 Labor Evaluation Frequency: 0 Monitor Mode: External Duration (sec)2399: denies Resting Tone [place]: Relaxed Heart Rate FHR Baseline Rate: 135 Monitor Mode: External US Variability: Moderate 6-25 bpm Accelerations: 15X15 Decelerations: None Category: Category I Pain Presence: None/Denies Datetime: 04/28/2018 20:05 Stage of : Antepartum Assessment Type: Ongoing Assessment Maternal Assessment Level of Consciousness: Fully Conscious DTR's/Clonus: DTRs 2+; No Clonus Headache: Denies Blurred Vision: No Respiratory Effort: Unlabored; Regular Rhythm; Equal Expansion Breath Sounds, Left: Clear and Equal Breath Sounds, Right: Clear and Equal Nausea/Vomiting: Denies RUQ Epigastric Pain: Denies Lower Extremities Edema: None Degree: None Upper Extremities Edema: None Degree: None Facial Edema: None Temperature Route: Oral Fall Risk Assessment History of Falling: (0) No Secondary Diagnosis: (0) No Ambulatory Aid: (0) Bedrest/Nurse Assist IV Therapy: (0) No Gait: (0) Normal/Bedrest/Immobile Mental Status: (0) Oriented to Own Ability Fall Score: 0 Fall Risk Score Definition: No Risk: No action required Pain Presence: None/Denies Datetime: 04/28/2018 20:00 Labor Evaluation Frequency: 0 Monitor Mode: External Duration (sec)2399: DENIES Resting Tone [place]: Relaxed Heart Rate FHR Baseline Rate: 135 Monitor Mode: External US Variability: Moderate 6-25 bpm Accelerations: 15X15 Decelerations: None Category: Category I Pain Presence: None/Denies Datetime: 04/28/2018 19:00 Maternal Assessment Level of Consciousness: Fully Conscious DTR's/Clonus: DTRs 1+ Headache: Denies Blurred Vision: No Breath Sounds, Left: Clear and Equal Breath Sounds, Right: Clear and Equal Nausea/Vomiting: Denies RUQ Epigastric Pain: Denies Facial Edema: None Labor Evaluation Frequency: 0 Monitor Mode: External Resting Tone [place]: Relaxed Heart Rate FHR Baseline Rate: 130 Monitor Mode: External US FHR Baseline Changes: No Baseline Change Variability: Moderate 6-25 bpm Accelerations: 15X15 Decelerations: None Category: Category I Pain Assessment Pain Scale: 0 Pain Presence: None/Denies Pain Type: N/A Datetime: 04/28/2018 18:00 Maternal Assessment Level of Consciousness: Fully Conscious DTR's/Clonus: DTRs 2+ Headache: Denies Nausea/Vomiting: Denies RUQ Epigastric Pain: Denies Labor Evaluation Frequency: 0 Monitor Mode: External Resting Tone [place]: Relaxed Heart Rate FHR Baseline Rate: 130 Monitor Mode: External US FHR Baseline Changes: No Baseline Change Variability: Moderate 6-25 bpm Accelerations: 15X15 Decelerations: None Pain Assessment Pain Scale: 0 Pain Presence: None/Denies Pain Type: N/A Datetime: 04/28/2018 17:00 Maternal Assessment Level of Consciousness: Fully Conscious DTR's/Clonus: DTRs 2+ Headache: Denies Blurred Vision: No Respiratory Effort: Unlabored Breath Sounds, Left: Clear and Equal Breath Sounds, Right: Clear and Equal Nausea/Vomiting: Denies RUQ Epigastric Pain: Denies Facial Edema: None Labor Evaluation Frequency: 0 Monitor Mode: External Quality: Mild Pattern: Normal: <= 5 Contractions in 10 Minutes Resting Tone [place]: Relaxed Heart Rate FHR Baseline Rate: 140 Monitor Mode: External US FHR Baseline Changes: No Baseline Change Variability: Moderate 6-25 bpm Accelerations: 15X15 Decelerations: None Category: Category I Pain Assessment Pain Scale: 0 Pain Presence: None/Denies Pain Type: N/A Datetime: 04/28/2018 16:00 Stage of : Antepartum Maternal Assessment Level of Consciousness: Fully Conscious DTR's/Clonus: DTRs 2+ Headache: Denies Blurred Vision: No Breath Sounds, Left: Clear and Equal Breath Sounds, Right: Clear and Equal Nausea/Vomiting: Denies RUQ Epigastric Pain: Denies Facial Edema: None Labor Evaluation Frequency: x1 Monitor Mode: External Duration (sec)2399: 60 Quality: Mild Pattern: Normal: <= 5 Contractions in 10 Minutes Resting Tone [place]: Relaxed Heart Rate FHR Baseline Rate: 130 Monitor Mode: External US FHR Baseline Changes: No Baseline Change Variability: Moderate 6-25 bpm Accelerations: 15X15 Decelerations: None Category: Category I Pain Assessment Pain Scale: 0 Pain Presence: None/Denies Pain Type: N/A Datetime: 04/28/2018 15:28 Stage of : Antepartum Temperature Route: Oral Pain Assessment Pain Scale: 0 Pain Presence: None/Denies Pain Type: N/A Datetime: 04/28/2018 15:00 Labor Evaluation Frequency: 0 Monitor Mode: External Quality: Mild Resting Tone [place]: Relaxed Heart Rate FHR Baseline Rate: 125 Monitor Mode: External US FHR Baseline Changes: No Baseline Change Variability: Moderate 6-25 bpm Accelerations: 15X15 Decelerations: None Category: Category I Pain Assessment Pain Scale: 0 Pain Presence: None/Denies Pain Type: N/A Datetime: 04/28/2018 14:00 Maternal Assessment Level of Consciousness: Fully Conscious DTR's/Clonus: DTRs 2+ Headache: Denies Blurred Vision: No Breath Sounds, Left: Clear and Equal Breath Sounds, Right: Clear and Equal Nausea/Vomiting: Denies RUQ Epigastric Pain: Denies Facial Edema: None Labor Evaluation Frequency: 0 Monitor Mode: External Resting Tone [place]: Relaxed Heart Rate FHR Baseline Rate: 125 Monitor Mode: External US FHR Baseline Changes: No Baseline Change Variability: Moderate 6-25 bpm Accelerations: 15X15 Decelerations: None Category: Category I Pain Assessment Pain Scale: 0 Pain Presence: None/Denies Pain Type: N/A Datetime: 04/28/2018 13:00 Maternal Assessment Level of Consciousness: Fully Conscious DTR's/Clonus: DTRs 2+ Headache: Denies Blurred Vision: No Respiratory Effort: Unlabored Breath Sounds, Left: Clear and Equal Breath Sounds, Right: Clear and Equal Nausea/Vomiting: Denies RUQ Epigastric Pain: Denies Facial Edema: None Labor Evaluation Frequency: 0 Monitor Mode: External Resting Tone [place]: Relaxed Heart Rate FHR Baseline Rate: 125 Monitor Mode: External US FHR Baseline Changes: No Baseline Change Variability: Moderate 6-25 bpm Accelerations: 15X15 Decelerations: None Category: Category I Datetime: 04/28/2018 12:16 Stage of : Antepartum Temperature Route: Oral Datetime: 04/28/2018 12:00 Maternal Assessment Level of Consciousness: Fully Conscious DTR's/Clonus: DTRs 2+ Headache: Denies Blurred Vision: Yes Respiratory Effort: Unlabored Breath Sounds, Left: Clear and Equal Breath Sounds, Right: Clear and Equal Nausea/Vomiting: Denies RUQ Epigastric Pain: Denies Facial Edema: None Labor Evaluation Frequency: 0 Monitor Mode: External Resting Tone [place]: Relaxed Heart Rate FHR Baseline Rate: 120 Monitor Mode: External US FHR Baseline Changes: No Baseline Change Variability: Moderate 6-25 bpm Accelerations: 15X15 Decelerations: None Category: Category I Datetime: 04/28/2018 11:00 Labor Evaluation Frequency: o Monitor Mode: External Resting Tone [place]: Relaxed Heart Rate FHR Baseline Rate: 125 Monitor Mode: External US FHR Baseline Changes: No Baseline Change Variability: Moderate 6-25 bpm Accelerations: 15X15 Decelerations: None Category: Category I Pain Assessment Pain Scale: 0 Pain Presence: None/Denies Pain Type: N/A Datetime: 04/28/2018 10:00 Labor Evaluation Frequency: 0 Monitor Mode: External Resting Tone [place]: Relaxed Heart Rate FHR Baseline Rate: 125 Monitor Mode: External US FHR Baseline Changes: No Baseline Change Variability: Moderate 6-25 bpm Accelerations: 15X15 Decelerations: None Category: Category I Pain Assessment Pain Scale: 0 Pain Presence: None/Denies Pain Type: N/A Datetime: 04/28/2018 09:00 Maternal Assessment Level of Consciousness: Fully Conscious DTR's/Clonus: DTRs 2+ Headache: Denies Blurred Vision: No Respiratory Effort: Unlabored Breath Sounds, Left: Clear and Equal Breath Sounds, Right: Clear and Equal Nausea/Vomiting: Present RUQ Epigastric Pain: Denies Facial Edema: None Labor Evaluation Frequency: 0 Monitor Mode: External Resting Tone [place]: Relaxed Heart Rate FHR Baseline Rate: 125 Monitor Mode: External US FHR Baseline Changes: No Baseline Change Variability: Moderate 6-25 bpm Accelerations: 15X15 Decelerations: None Category: Category I Pain Assessment Pain Scale: 0 Pain Presence: None/Denies Pain Type: N/A Datetime: 04/28/2018 08:16 Stage of : Antepartum Temperature Route: Oral Datetime: 04/28/2018 08:00 Labor Evaluation Frequency: 0 Monitor Mode: External Pattern: Normal: <= 5 Contractions in 10 Minutes Resting Tone [place]: Relaxed Heart Rate FHR Baseline Rate: 125 Monitor Mode: External US FHR Baseline Changes: No Baseline Change Variability: Moderate 6-25 bpm Accelerations: 15X15 Decelerations: None Category: Category I Pain Assessment Pain Scale: 0 Pain Presence: None/Denies Datetime: 04/28/2018 07:30 Assessment Type: Ongoing Assessment Maternal Assessment Level of Consciousness: Fully Conscious DTR's/Clonus: DTRs 2+; No Clonus Headache: Denies Blurred Vision: No Respiratory Effort: Unlabored; Regular Rhythm; Equal Expansion Breath Sounds, Left: Clear and Equal Breath Sounds, Right: Clear and Equal Nausea/Vomiting: Denies RUQ Epigastric Pain: Denies Lower Extremities Edema: None Degree: None Upper Extremities Edema: None Degree: None Facial Edema: None Fall Risk Assessment History of Falling: (0) No Secondary Diagnosis: (0) No Ambulatory Aid: (0) Bedrest/Nurse Assist IV Therapy: (0) No Gait: (0) Normal/Bedrest/Immobile Mental Status: (0) Oriented to Own Ability Fall Score: 0 Fall Risk Score Definition: No Risk: No action required Datetime: 04/28/2018 06:30 Labor Evaluation Frequency: x1 Monitor Mode: External Duration (sec)2399: 80 Quality: Mild Resting Tone [place]: Relaxed Heart Rate FHR Baseline Rate: 135 Monitor Mode: External US Variability: Moderate 6-25 bpm Accelerations: 15X15 Decelerations: None Category: Category I Pain Presence: None/Denies Datetime: 04/28/2018 05:30 Labor Evaluation Frequency: 0 Monitor Mode: External Resting Tone [place]: Relaxed Heart Rate FHR Baseline Rate: 125 Monitor Mode: External US Variability: Moderate 6-25 bpm Accelerations: 15X15 Decelerations: None Category: Category I Datetime: 04/28/2018 04:30 Labor Evaluation Frequency: 0 Monitor Mode: External Duration (sec)2399: denies Resting Tone [place]: Relaxed Heart Rate FHR Baseline Rate: 130 Monitor Mode: External US Variability: Moderate 6-25 bpm Accelerations: 15X15 Decelerations: None Category: Category I Pain Presence: None/Denies Datetime: 04/28/2018 04:16 Maternal Assessment Level of Consciousness: Fully Conscious DTR's/Clonus: DTRs 2+ Headache: Denies Blurred Vision: No Respiratory Effort: Unlabored; Regular Rhythm; Equal Expansion Breath Sounds, Left: Clear and Equal Breath Sounds, Right: Clear and Equal Nausea/Vomiting: Denies Datetime: 04/28/2018 03:30 Labor Evaluation Frequency: 0 Monitor Mode: External Resting Tone [place]: Relaxed Heart Rate FHR Baseline Rate: 135 Monitor Mode: External US Variability: Moderate 6-25 bpm Accelerations: 15X15 Decelerations: None Category: Category I Datetime: 04/28/2018 02:30 Labor Evaluation Frequency: x1 Monitor Mode: External Duration (sec)2399: 70 Quality: Mild Resting Tone [place]: Relaxed Heart Rate FHR Baseline Rate: 135 Monitor Mode: External US Variability: Moderate 6-25 bpm Accelerations: 15X15 Decelerations: None Category: Category I Pain Presence: None/Denies Datetime: 04/28/2018 01:30 Labor Evaluation Frequency: x2 Monitor Mode: External Duration (sec)2399: 60-110 Quality: Mild Resting Tone [place]: Relaxed Heart Rate FHR Baseline Rate: 140 Monitor Mode: External US Variability: Moderate 6-25 bpm Accelerations: 15X15 Decelerations: None Category: Category I Pain Presence: None/Denies Datetime: 04/28/2018 00:44 Pain Presence: None/Denies Datetime: 04/28/2018 00:30 Labor Evaluation Frequency: irregular Monitor Mode: External Duration (sec)2399: 40-70 Quality: Mild Resting Tone [place]: Relaxed Contraction Comments: pt denies feeling uc's. Heart Rate FHR Baseline Rate: 135 Monitor Mode: External US Variability: Moderate 6-25 bpm Accelerations: 15X15 Decelerations: None Category: Category I Pain Presence: None/Denies Datetime: 04/27/2018 23:30 Stage of : Antepartum Assessment Type: Ongoing Assessment Maternal Assessment Level of Consciousness: Fully Conscious DTR's/Clonus: DTRs 2+; No Clonus Headache: Denies Blurred Vision: No Respiratory Effort: Unlabored; Regular Rhythm; Equal Expansion Breath Sounds, Left: Clear and Equal Breath Sounds, Right: Clear and Equal Nausea/Vomiting: Denies RUQ Epigastric Pain: Denies Lower Extremities Edema: None Degree: None Upper Extremities Edema: None Degree: None Facial Edema: None Temperature Route: Oral Fall Risk Assessment History of Falling: (0) No Secondary Diagnosis: (0) No Ambulatory Aid: (0) Bedrest/Nurse Assist IV Therapy: (0) No Gait: (0) Normal/Bedrest/Immobile Mental Status: (0) Oriented to Own Ability Fall Score: 0 Fall Risk Score Definition: No Risk: No action required Monitor Mode: External (Annotations: PLACED AFTER PT CAME FROM TRIAGE.) Pain Presence: None/Denies Datetime: 04/27/2018 20:35 Time of Arrival: 04/27/2018 20:11 EGA: 34.5 Arrived By: Wheelchair Arrived From: Home Chief Complaint: vaginal bleeding Movement: Present Contractions: Irregular Contractions: unsure Rupture of Membranes: Denies Vaginal Bleeding: None Vaginal Discharge: Denies Recent Sexual Intercouse: Denies Abdominal Trauma: Not Applicable Patient Complaints: Other Additional Patient Complaints: Pt states her stomach gets hard sometimes Time Provider Notified: 04/27/2018 21:10 Provider Notified: Dr. Field Initial Plan: [facility] Datetime: 04/27/2018 20:32 Stage of : OB Triage Assessment Type: Triage Maternal Assessment Level of Consciousness: Fully Conscious DTR's/Clonus: DTRs 2+; No Clonus Headache: Denies Blurred Vision: No Respiratory Effort: Unlabored; Regular Rhythm; Equal Expansion Breath Sounds, Left: Clear and Equal Breath Sounds, Right: Clear and Equal Nausea/Vomiting: Denies RUQ Epigastric Pain: Denies Lower Extremities Edema: None Degree: None Upper Extremities Edema: None Degree: None Facial Edema: None Temperature Route: Oral Fall Risk Assessment History of Falling: (0) No Secondary Diagnosis: (0) No Ambulatory Aid: (0) Bedrest/Nurse Assist IV Therapy: (0) No Gait: (0) Normal/Bedrest/Immobile Mental Status: (0) Oriented to Own Ability Fall Score: 0 Fall Risk Score Definition: No Risk: No action required Pain Assessment Pain Scale: 0 Pain Presence: None/Denies Pain Type: N/A Datetime: 04/05/2018 16:30 Labor Evaluation Frequency: 0 Monitor Mode: External Heart Rate FHR Baseline Rate: 140 Monitor Mode: External US FHR Baseline Changes: No Baseline Change Variability: Moderate 6-25 bpm Accelerations: 15X15 Decelerations: None Category: Category I Pain Assessment Pain Scale: 0 Pain Presence: None/Denies Pain Type: N/A Pain Goal: 0 Datetime: 04/05/2018 16:00 Labor Evaluation Frequency: IRRIT Monitor Mode: External Duration (sec)2399: 10-20 Quality: Mild Pattern: Normal: <= 5 Contractions in 10 Minutes Resting Tone [place]: Relaxed Heart Rate FHR Baseline Rate: 140 Monitor Mode: External US FHR Baseline Changes: No Baseline Change Variability: Moderate 6-25 bpm Accelerations: 15X15 Decelerations: None Category: Category I Pain Assessment Pain Scale: 0 Pain Presence: None/Denies Pain Type: N/A Pain Goal: 0 Datetime: 04/05/2018 15:00 Labor Evaluation Frequency: 0 Monitor Mode: External Heart Rate FHR Baseline Rate: 130 Monitor Mode: External US FHR Baseline Changes: No Baseline Change Variability: Moderate 6-25 bpm Accelerations: 15X15 Decelerations: None Category: Category I Pain Assessment Pain Scale: 0 Pain Presence: None/Denies Pain Type: N/A Pain Goal: 0 Membrane Status: Intact Datetime: 04/05/2018 13:58 Labor Evaluation Frequency: 0 Monitor Mode: External Heart Rate FHR Baseline Rate: 130 Monitor Mode: External US FHR Baseline Changes: No Baseline Change Variability: Moderate 6-25 bpm Accelerations: 15X15 Decelerations: None Category: Category I Pain Assessment Pain Scale: 0 Pain Presence: None/Denies Pain Type: N/A Pain Goal: 0 Datetime: 04/05/2018 12:55 Labor Evaluation Frequency: X1 Monitor Mode: External Duration (sec)2399: 80 Quality: Mild Pattern: Normal: <= 5 Contractions in 10 Minutes Resting Tone [place]: Relaxed Heart Rate FHR Baseline Rate: 130 Monitor Mode: External US FHR Baseline Changes: No Baseline Change Variability: Moderate 6-25 bpm Accelerations: 15X15 Decelerations: None Category: Category I Pain Assessment Pain Scale: 0 Pain Presence: None/Denies Pain Type: N/A Pain Goal: 0 Datetime: 04/05/2018 12:00 Labor Evaluation Frequency: 0 Monitor Mode: External Heart Rate FHR Baseline Rate: 130 Monitor Mode: External US FHR Baseline Changes: No Baseline Change Variability: Moderate 6-25 bpm Accelerations: 15X15 Decelerations: None Category: Category I Pain Assessment Pain Scale: 0 Pain Presence: None/Denies Pain Type: N/A Pain Goal: 0 Datetime: 04/05/2018 11:00 Labor Evaluation Frequency: X2 Monitor Mode: External Duration (sec)2399: 40-60 Quality: Mild Pattern: Normal: <= 5 Contractions in 10 Minutes Resting Tone [place]: Relaxed Heart Rate FHR Baseline Rate: 130 Monitor Mode: External US FHR Baseline Changes: No Baseline Change Variability: Moderate 6-25 bpm Accelerations: 15X15 Decelerations: None Category: Category I Pain Assessment Pain Scale: 0 Pain Presence: None/Denies Pain Type: N/A Pain Goal: 0 Datetime: 04/05/2018 10:00 Labor Evaluation Frequency: X2 Monitor Mode: External Duration (sec)2399: 40-60 Quality: Mild Pattern: Normal: <= 5 Contractions in 10 Minutes Resting Tone [place]: Relaxed Heart Rate FHR Baseline Rate: 130 Monitor Mode: External US FHR Baseline Changes: No Baseline Change Variability: Moderate 6-25 bpm Accelerations: 15X15 Decelerations: None Category: Category I Pain Assessment Pain Scale: 0 Pain Presence: None/Denies Pain Type: N/A Pain Goal: 0 Datetime: 04/05/2018 09:00 Labor Evaluation Frequency: X1 Monitor Mode: External Duration (sec)2399: 60 Quality: Mild Pattern: Normal: <= 5 Contractions in 10 Minutes Resting Tone [place]: Relaxed Heart Rate FHR Baseline Rate: 130 Monitor Mode: External US FHR Baseline Changes: No Baseline Change Variability: Moderate 6-25 bpm Accelerations: 15X15 Decelerations: None Category: Category I Pain Assessment Pain Scale: 0 Pain Presence: None/Denies Pain Type: N/A Pain Goal: 0 Datetime: 04/05/2018 08:00 Labor Evaluation Frequency: X1 Monitor Mode: External Duration (sec)2399: 80 Quality: Mild Pattern: Normal: <= 5 Contractions in 10 Minutes Resting Tone [place]: Relaxed Heart Rate FHR Baseline Rate: 130 Monitor Mode: External US FHR Baseline Changes: No Baseline Change Variability: Moderate 6-25 bpm Accelerations: 15X15 Decelerations: None Category: Category I Pain Assessment Pain Scale: 0 Pain Presence: None/Denies Pain Type: N/A Pain Goal: 0 Datetime: 04/05/2018 07:30 Assessment Type: Ongoing Assessment Maternal Assessment Level of Consciousness: Fully Conscious DTR's/Clonus: DTRs 2+; No Clonus Headache: Denies Blurred Vision: No Respiratory Effort: Unlabored; Regular Rhythm; Equal Expansion Breath Sounds, Left: Clear and Equal Breath Sounds, Right: Clear and Equal Nausea/Vomiting: Denies RUQ Epigastric Pain: Denies Lower Extremities Edema: None Degree: None Upper Extremities Edema: None Degree: None Facial Edema: None Fall Risk Assessment History of Falling: (0) No Secondary Diagnosis: (0) No Ambulatory Aid: (0) Bedrest/Nurse Assist IV Therapy: (0) No Gait: (0) Normal/Bedrest/Immobile Mental Status: (0) Oriented to Own Ability Fall Score: 0 Fall Risk Score Definition: No Risk: No action required Labor Evaluation Frequency: X3 Monitor Mode: External Duration (sec)2399: 60 Quality: Mild Pattern: Normal: <= 5 Contractions in 10 Minutes Resting Tone [place]: Relaxed Heart Rate FHR Baseline Rate: 120 Monitor Mode: External US FHR Baseline Changes: No Baseline Change Variability: Moderate 6-25 bpm Accelerations: 15X15 Decelerations: None Category: Category I Pain Assessment Pain Scale: 0 Pain Presence: None/Denies Pain Type: N/A Pain Goal: 0 Datetime: 04/05/2018 05:22 Stage of : Antepartum Maternal Assessment Level of Consciousness: Fully Conscious Headache: Denies Blurred Vision: No Respiratory Effort: Unlabored Breath Sounds, Left: Clear and Equal Breath Sounds, Right: Clear and Equal Nausea/Vomiting: Denies Labor Evaluation Frequency: 1-2 HOUR Monitor Mode: External Duration (sec)2399: 50-60 Pattern: Normal: <= 5 Contractions in 10 Minutes Resting Tone [place]: Relaxed Heart Rate FHR Baseline Rate: 120 Monitor Mode: External US FHR Baseline Changes: No Baseline Change Variability: Moderate 6-25 bpm Accelerations: 15X15 Decelerations: None Category: Category I Pain Assessment Pain Scale: 0 Pain Presence: None/Denies Pain Type: N/A Membrane Status: Intact Datetime: 04/05/2018 04:30 Stage of : Labor Maternal Assessment Level of Consciousness: Fully Conscious DTR's/Clonus: DTRs 2+ Headache: Denies Blurred Vision: No Respiratory Effort: Unlabored Breath Sounds, Left: Clear and Equal Breath Sounds, Right: Clear and Equal Nausea/Vomiting: Denies RUQ Epigastric Pain: Denies Facial Edema: None Labor Evaluation Frequency: 0 Monitor Mode: External Duration (sec)2399: 0 Resting Tone [place]: Relaxed Heart Rate FHR Baseline Rate: 125 Monitor Mode: External US FHR Baseline Changes: No Baseline Change Variability: Moderate 6-25 bpm Accelerations: 15X15 Decelerations: None Category: Category I Pain Assessment Pain Scale: 0 Pain Presence: None/Denies Pain Type: N/A Membrane Status: Intact Datetime: 04/05/2018 03:09 Stage of : Antepartum Maternal Assessment Level of Consciousness: Fully Conscious DTR's/Clonus: DTRs 2+ Headache: Denies Blurred Vision: No Nausea/Vomiting: Denies RUQ Epigastric Pain: Denies Labor Evaluation Frequency: 0 Monitor Mode: External Intensity IUP (mmHg): 0 Resting Tone [place]: Relaxed Heart Rate FHR Baseline Rate: 120 Monitor Mode: External US FHR Baseline Changes: No Baseline Change Variability: Moderate 6-25 bpm Accelerations: 10X10 Decelerations: None Category: Category I Pain Presence: None/Denies Pain Type: N/A Datetime: 04/05/2018 02:33 Stage of : Antepartum Maternal Assessment Level of Consciousness: Fully Conscious Headache: Denies Blurred Vision: No Respiratory Effort: Unlabored Breath Sounds, Left: Clear and Equal Breath Sounds, Right: Clear and Equal Nausea/Vomiting: Denies RUQ Epigastric Pain: Denies Labor Evaluation Frequency: 0 Monitor Mode: External Duration (sec)2399: 0 Pattern: Normal: <= 5 Contractions in 10 Minutes Resting Tone [place]: Relaxed Heart Rate FHR Baseline Rate: 125 Monitor Mode: External US FHR Baseline Changes: No Baseline Change Variability: Moderate 6-25 bpm Accelerations: 15X15 Decelerations: None Category: Category I Pain Presence: None/Denies Pain Type: N/A Membrane Status: Intact Datetime: 04/05/2018 01:14 Stage of : Antepartum Labor Evaluation Frequency: x1 Monitor Mode: External Duration (sec)2399: 40 Pattern: Normal: <= 5 Contractions in 10 Minutes Resting Tone [place]: Relaxed Heart Rate FHR Baseline Rate: 130 Monitor Mode: External US FHR Baseline Changes: No Baseline Change Variability: Moderate 6-25 bpm Accelerations: 15X15 Decelerations: None Category: Category I Pain Presence: None/Denies Pain Type: N/A Membrane Status: Intact Datetime: 04/05/2018 00:14 Stage of : Antepartum Labor Evaluation Frequency: 0 Monitor Mode: External Duration (sec)2399: 0 Resting Tone [place]: Relaxed Heart Rate FHR Baseline Rate: 130 Monitor Mode: External US FHR Baseline Changes: No Baseline Change Variability: Moderate 6-25 bpm Accelerations: 10X10 Decelerations: None Category: Category I Pain Presence: None/Denies Pain Type: N/A Datetime: 04/04/2018 23:04 Stage of : Antepartum Labor Evaluation Frequency: 0 Monitor Mode: External Duration (sec)2399: 0 Resting Tone [place]: Relaxed Heart Rate FHR Baseline Rate: 130 Monitor Mode: External US FHR Baseline Changes: No Baseline Change Variability: Moderate 6-25 bpm Accelerations: 10X10 Decelerations: None Category: Category I Pain Presence: None/Denies Pain Type: N/A Datetime: 04/04/2018 22:11 Stage of : Antepartum Labor Evaluation Frequency: x1/HOUR Monitor Mode: External Duration (sec)2399: 40 Pattern: Normal: <= 5 Contractions in 10 Minutes Resting Tone [place]: Relaxed Heart Rate FHR Baseline Rate: 125 Monitor Mode: External US FHR Baseline Changes: No Baseline Change Variability: Moderate 6-25 bpm Accelerations: 15X15 Decelerations: None Category: Category I Pain Presence: None/Denies Pain Type: N/A Datetime: 04/04/2018 21:28 Stage of : Antepartum Maternal Assessment Level of Consciousness: Fully Conscious DTR's/Clonus: DTRs 2+ Headache: Denies Blurred Vision: No Respiratory Effort: Unlabored Breath Sounds, Left: Clear and Equal Breath Sounds, Right: Clear and Equal Nausea/Vomiting: Denies RUQ Epigastric Pain: Denies Labor Evaluation Frequency: X1-2/HOUR Monitor Mode: External Duration (sec)2399: 50-60 Quality: Mild Pattern: Normal: <= 5 Contractions in 10 Minutes Resting Tone [place]: Relaxed Contraction Comments: PATIENT STATES NO PRESSURE OR PAIN FELT Heart Rate FHR Baseline Rate: 120 Monitor Mode: External US FHR Baseline Changes: No Baseline Change Variability: Moderate 6-25 bpm Accelerations: 10X10 Decelerations: None Category: Category I Pain Assessment Pain Scale: 0 Pain Presence: None/Denies Pain Type: N/A Pain Relief Measures: Comfort Measures Membrane Status: Intact Datetime: 04/04/2018 20:18 Stage of : Antepartum Maternal Assessment Level of Consciousness: Fully Conscious Headache: Denies Nausea/Vomiting: Denies Labor Evaluation Frequency: OCCASIONAL UTC SEEN Duration (sec)2399: 35-50 Pattern: Normal: <= 5 Contractions in 10 Minutes Resting Tone [place]: Relaxed Heart Rate FHR Baseline Rate: 125 Monitor Mode: External US FHR Baseline Changes: No Baseline Change Variability: Moderate 6-25 bpm Accelerations: 10X10 Decelerations: None Category: Category I Pain Assessment Pain Scale: 0 Pain Presence: None/Denies Pain Type: N/A Membrane Status: Intact Datetime: 04/04/2018 19:30 Stage of : Antepartum Assessment Type: Ongoing Assessment Maternal Assessment Level of Consciousness: Fully Conscious Maternal Assessment Level of Consciousness: Fully Conscious DTR's/Clonus: DTRs 2+; No Clonus DTR's/Clonus: DTRs 2+ Headache: Denies Headache: Denies Blurred Vision: No Blurred Vision: No Respiratory Effort: Unlabored; Regular Rhythm; Equal Expansion Respiratory Effort: Unlabored Breath Sounds, Left: Clear and Equal Breath Sounds, Left: Clear and Equal Breath Sounds, Right: Clear and Equal Breath Sounds, Right: Clear and Equal Nausea/Vomiting: Denies Nausea/Vomiting: Denies RUQ Epigastric Pain: Denies RUQ Epigastric Pain: Denies Lower Extremities Edema: None Degree: None Upper Extremities Edema: None Degree: None Facial Edema: None Facial Edema: None Fall Risk Assessment History of Falling: (0) No Secondary Diagnosis: (0) No Ambulatory Aid: (0) Bedrest/Nurse Assist IV Therapy: (20) Yes Gait: (0) Normal/Bedrest/Immobile Mental Status: (0) Oriented to Own Ability Fall Score: 20 Fall Risk Score Definition: No Risk: No action required Labor Evaluation Frequency: 0 Monitor Mode: External Duration (sec)2399: 0 Pattern: Normal: <= 5 Contractions in 10 Minutes Resting Tone [place]: Relaxed Contraction Comments: PATIENT STATES NO PRESSURE OR PAIN FELT NOR CRAMPING Heart Rate FHR Baseline Rate: 130 Monitor Mode: External US FHR Baseline Changes: No Baseline Change Variability: Moderate 6-25 bpm Accelerations: 15X15 Decelerations: None Category: Category I Membrane Status: Intact Datetime: 04/04/2018 19:20 Labor Evaluation Frequency: X2 Monitor Mode: External Pattern: Normal: <= 5 Contractions in 10 Minutes Resting Tone [place]: Relaxed Heart Rate FHR Baseline Rate: 120 Monitor Mode: External US FHR Baseline Changes: No Baseline Change Variability: Moderate 6-25 bpm Accelerations: 10X10 Decelerations: None Category: Category I Datetime: 04/04/2018 18:17 Labor Evaluation Frequency: 0 Monitor Mode: External Pattern: Normal: <= 5 Contractions in 10 Minutes Resting Tone [place]: Relaxed Heart Rate FHR Baseline Rate: 120 Monitor Mode: External US FHR Baseline Changes: No Baseline Change Variability: Moderate 6-25 bpm Accelerations: 15X15 Decelerations: None Category: Category I Datetime: 04/04/2018 18:16 Stage of : Labor Datetime: 04/04/2018 17:17 Labor Evaluation Frequency: 0 Monitor Mode: External Resting Tone [place]: Relaxed Heart Rate FHR Baseline Rate: 120 Monitor Mode: External US FHR Baseline Changes: No Baseline Change Variability: Moderate 6-25 bpm Accelerations: 15X15 Decelerations: None Category: Category I Datetime: 04/04/2018 16:19 Assessment Type: Ongoing Assessment Maternal Assessment Level of Consciousness: Fully Conscious DTR's/Clonus: DTRs 2+ Respiratory Effort: Unlabored; Regular Rhythm Breath Sounds, Left: Clear and Equal Breath Sounds, Right: Clear and Equal Datetime: 04/04/2018 16:17 Labor Evaluation Frequency: X1 Monitor Mode: External Quality: Mild Resting Tone [place]: Relaxed Heart Rate FHR Baseline Rate: 120 Monitor Mode: External US FHR Baseline Changes: No Baseline Change Variability: Moderate 6-25 bpm Accelerations: 15X15 Decelerations: None Category: Category I Datetime: 04/04/2018 16:16 Stage of : Antepartum Temperature Route: Oral Pain Assessment Pain Scale: 0 Pain Presence: None/Denies Pain Goal: 0 Datetime: 04/04/2018 15:39 Labor Evaluation Frequency: X1 Monitor Mode: External Quality: Mild Resting Tone [place]: Relaxed Heart Rate FHR Baseline Rate: 120 Monitor Mode: External US FHR Baseline Changes: No Baseline Change Variability: Moderate 6-25 bpm Accelerations: 15X15 Decelerations: None Category: Category I Datetime: 04/04/2018 14:53 Labor Evaluation Frequency: X1 Monitor Mode: External Pattern: Normal: <= 5 Contractions in 10 Minutes Resting Tone [place]: Relaxed Heart Rate FHR Baseline Rate: 120 Monitor Mode: External US FHR Baseline Changes: No Baseline Change Variability: Moderate 6-25 bpm Accelerations: 10X10 Decelerations: None Category: Category I Datetime: 04/04/2018 14:06 Labor Evaluation Frequency: x2 Monitor Mode: External Pattern: Normal: <= 5 Contractions in 10 Minutes Resting Tone [place]: Relaxed Heart Rate FHR Baseline Rate: 120 Monitor Mode: External US FHR Baseline Changes: No Baseline Change Variability: Moderate 6-25 bpm Accelerations: 15X15 Decelerations: None Category: Category I Datetime: 04/04/2018 13:49 Labor Evaluation Frequency: 0 Monitor Mode: External Pattern: Normal: <= 5 Contractions in 10 Minutes Heart Rate FHR Baseline Rate: 125 Monitor Mode: External US FHR Baseline Changes: No Baseline Change Variability: Moderate 6-25 bpm Accelerations: 15X15 Decelerations: None Category: Category I Datetime: 04/04/2018 12:00 Labor Evaluation Frequency: OCC Monitor Mode: External Quality: Mild Pattern: Normal: <= 5 Contractions in 10 Minutes Resting Tone [place]: Relaxed Heart Rate FHR Baseline Rate: 125 Monitor Mode: External US FHR Baseline Changes: No Baseline Change Variability: Moderate 6-25 bpm Accelerations: 15X15 Decelerations: None Category: Category I Datetime: 04/04/2018 10:59 Stage of : Antepartum Labor Evaluation Frequency: 0 Monitor Mode: External Resting Tone [place]: Relaxed Heart Rate FHR Baseline Rate: 130 Monitor Mode: External US FHR Baseline Changes: No Baseline Change Variability: Moderate 6-25 bpm Accelerations: 10X10 Decelerations: None Category: Category I Datetime: 04/04/2018 10:52 Assessment Type: Admission Assessment Vaginal Bleeding: None Maternal Assessment Level of Consciousness: Fully Conscious DTR's/Clonus: DTRs 2+; No Clonus Headache: Denies Blurred Vision: No Respiratory Effort: Unlabored; Regular Rhythm; Equal Expansion Breath Sounds, Left: Clear and Equal Breath Sounds, Right: Clear and Equal Nausea/Vomiting: Denies RUQ Epigastric Pain: Denies Lower Extremities Edema: None Degree: None Upper Extremities Edema: None Facial Edema: None Fall Risk Assessment History of Falling: (0) No Secondary Diagnosis: (0) No Ambulatory Aid: (0) Bedrest/Nurse Assist IV Therapy: (20) Yes Gait: (0) Normal/Bedrest/Immobile Mental Status: (0) Oriented to Own Ability Fall Score: 20 Fall Risk Score Definition: No Risk: No action required Labor Evaluation Frequency: OCC WITH UTERINE IRRIT Duration (sec)2399: 80 Quality: Mild Resting Tone [place]: Relaxed Heart Rate FHR Baseline Rate: 130 Variability: Moderate 6-25 bpm Accelerations: 10X10 Decelerations: None Category: Category I Pain Assessment Pain Scale: 0 Pain Presence: None/Denies Membrane Status: Intact Datetime: 04/04/2018 10:00 Time of Arrival: 04/04/2018 10:00 EGA: 31.3 Arrived By: Wheelchair Labor Evaluation Frequency: 1-3 Monitor Mode: External Duration (sec)2399: 20-60 Quality: Mild Pattern: Normal: <= 5 Contractions in 10 Minutes Resting Tone [place]: Relaxed Heart Rate FHR Baseline Rate: 130 Monitor Mode: External US FHR Baseline Changes: No Baseline Change Variability: Moderate 6-25 bpm Accelerations: 15X15 Decelerations: None Category: Category I Datetime: 04/04/2018 09:57 EGA: 31.3 Datetime: 04/04/2018 09:30 Stage of : OB Triage Datetime: 04/04/2018 09:24 Stage of : OB Triage Maternal Assessment Level of Consciousness: Fully Conscious Headache: Denies Blurred Vision: No Respiratory Effort: Unlabored Nausea/Vomiting: Denies RUQ Epigastric Pain: Denies Facial Edema: None Monitor Mode: External Resting Tone [place]: Relaxed Heart Rate FHR Baseline Rate: 135 Monitor Mode: External US Pain Assessment Pain Scale: 0 Pain Presence: None/Denies Pain Type: N/A Datetime: 03/10/2018 21:14 Fall Score: 0 Fall Risk Score Definition: No Risk: No action required Datetime: 03/10/2018 07:43 Fall Score: 0 Fall Risk Score Definition: No Risk: No action required Datetime: 03/09/2018 08:34 Fall Score: 20 Fall Risk Score Definition: No Risk: No action required Datetime: 03/08/2018 20:12 Fall Score: 20 Fall Risk Score Definition: No Risk: No action required Datetime: 03/08/2018 10:18 Fall Score: 0 Fall Risk Score Definition: No Risk: No action required Datetime: 03/08/2018 08:35 Fall Score: 0 Fall Risk Score Definition: No Risk: No action required Datetime: 03/08/2018 08:34 EGA: 27.4 Datetime: 03/01/2018 18:11 EGA: 26.4 Datetime: 03/01/2018 17:57 Fall Score: 0 Fall Risk Score Definition: No Risk: No action required Datetime: 03/01/2018 17:56 EGA: 26.4
== END 2018-05-04 10:20 | disposition home or self-care (01) ==
LOC: OBT 08:58 → L-D 08:59 → OBT 10:20
PROVIDERS: ATTEND Obstetrics & Gynecology
DX: O43.893 Other placental disorders, third trimester (principal); Z3A.35 35 weeks gestation of pregnancy
CPT/HCPCS: 76818; Z7500; G0463

== ENCOUNTER 2018-05-05 07:49 | Inpatient (IN) | payer MEDICAID ==
[~2018-05-05] VITALS: Ht 167.6 cm; Wt 74.3 kg
[2018-05-05 07:58] VITALS: BP 108/67; PULSE 120; RESP 17
[2018-05-05 07:59] VITALS: Ht 167.6 cm; Wt 74.3 kg
[2018-05-05] MEDS ORDERED: IBUPROFEN 600 MG TAB PO PRN (09:30)
[2018-05-05] MEDS ORDERED: CARBOPROST 250 MCG INJ IM PRN ×2 (09:30→23:00)
[2018-05-05] MEDS ORDERED: LIDOCAINE 1% (MPF) 30 ML INJ INJ PRN (09:30)
[2018-05-05] MEDS ORDERED: MISOPROSTOL 200 MCG TAB PR PRN ×2 (09:30→23:00)
[2018-05-05] MEDS ORDERED: BUTORPHANOL 2 MG INJ IV PRN (09:30)
[2018-05-05] MEDS ORDERED: OXYTOCIN 30 UNITS/LR 500 ML IV PRN ×2 (09:30→23:00)
[2018-05-05] MEDS ORDERED: OXYTOCIN 30 UNITS/LR 500 ML IV SCH ×3 (09:30)
[2018-05-05] MEDS ORDERED: OXYCODONE/ASPIRIN (4.88/325) TAB PO PRN (09:30)
[2018-05-05] MEDS ORDERED: METHYLERGONOVINE 0.2 MG INJ IM PRN ×2 (09:30→23:00)
[2018-05-05] MEDS: LACTATED RINGER'S 1,000 ML IV SCH ×2 (09:48→15:42)
--- NOTE | 2018-05-05 10:09 | TRIAGE ---
OB Triage Datetime Report Generated by CPN: 05/05/2018 10:09 Datetime: 05/05/2018 09:49 Labor Evaluation Monitor Mode: External Pattern: Normal: <= 5 Contractions in 10 Minutes Resting Tone [place]: Relaxed Contraction Comments: no uc Heart Rate FHR Baseline Rate: 140 Monitor Mode: External US Variability: Moderate 6-25 bpm Accelerations: 15X15 Decelerations: None Category: Category I Pain Assessment Pain Presence: None/Denies Pain Type: N/A Datetime: 05/05/2018 08:35 Pattern: Normal: <= 5 Contractions in 10 Minutes Resting Tone [place]: Relaxed Contraction Comments: no uc Heart Rate FHR Baseline Rate: 145 Monitor Mode: External US Variability: Minimal - Undetectable to <=5 bpm Accelerations: 15X15 Decelerations: None Category: Category II Pain Assessment Pain Presence: None/Denies Pain Type: N/A Datetime: 05/05/2018 08:20 Monitor Mode: External US Datetime: 05/05/2018 08:11 EGA: 35.6 Datetime: 05/05/2018 08:04 Vaginal Exam Dilatation (cms): 1.0 Effacement (%): 50 Station: -3 Exam By: [email or web address] Datetime: 05/05/2018 07:53 Assessment Type: Triage Maternal Assessment Level of Consciousness: Fully Conscious DTR's/Clonus: DTRs 2+; No Clonus Headache: Denies Blurred Vision: No Respiratory Effort: Unlabored; Regular Rhythm; Equal Expansion Breath Sounds, Left: Clear and Equal Breath Sounds, Right: Clear and Equal Nausea/Vomiting: Denies RUQ Epigastric Pain: Denies Lower Extremities Edema: None Degree: None Upper Extremities Edema: None Degree: None Facial Edema: None Fall Risk Assessment History of Falling: (0) No Secondary Diagnosis: (0) No Ambulatory Aid: (0) Bedrest/Nurse Assist IV Therapy: (0) No Gait: (0) Normal/Bedrest/Immobile Mental Status: (0) Oriented to Own Ability Fall Score: 0 Fall Risk Score Definition: No Risk: No action required Datetime: 05/05/2018 07:52 Time of Arrival: 05/05/2018 07:45 Arrived By: Ambulatory Arrived From: Home Chief Complaint: c/o leaking since 0620 this am Movement: Present Contractions: Denies/Absent Rupture of Membranes: Unsure Vaginal Bleeding: None Vaginal Discharge: Denies Recent Sexual Intercouse: Denies Abdominal Trauma: Not Applicable Patient Complaints: Other Time Provider Notified: 05/05/2018 09:06 Provider Notified: cheri Initial Plan: r/o srom
[2018-05-05] MEDS: AMPICILLIN 2 GM/NS (PMX) 100 ML IV SCH ×2 (10:42→16:55)
[2018-05-05] MEDS ORDERED: CEFAZOLIN 2 GM/50 ML (PMX) 50 ML IVPB ONE ×2 (17:00→17:03)
--- NOTE | 2018-05-05 17:09 | PREAC ---
Date/Time of Note Date/Time of Note DATE: 05/05/18 TIME: 17:07 Anesthesia Eval and Record Evaluation Time Pre-Procedure Interview DATE: 05/05/18 TIME: 17:07 Age 28 Sex female NPO: 8 hrs Preoperative diagnosis in labor with active vaginal bleeding Planned procedure C/S Past Medical History Past Medical History: None Surgery & Anesthesia Issues No known issue Meds Anticoagulation: No Beta Ruth within 24 hr: No Reason Beta Ruth not given: Pt. not on B-Ruth Reported Medications Nifedipine* (Procardia*) 20 Mg Cap, 20 MG PO Q6, CAP 05/05/18 Current Medications Lactated Ringer's 1,000 ml @ 125 mls/hr Q8H IV Last administered on 05/05/18at 15:42; Admin Dose 125 MLS/HR; Start 05/05/18 at 09:08 Ampicillin 100 ml @ 100 mls/hr Q6H IV Last administered on 05/05/18at 16:55; Admin Dose 100 MLS/HR; Start 05/05/18 at 10:00 Butorphanol Tartrate (Stadol) 2 mg Q2H PRN IV PAIN LEVEL 4-7; Start 05/05/18 at 09:30 Lidocaine (Xylocaine 1% (Mpf)) 30 ml ONCE PRN INJ md order; Start 05/05/18 at 09:30 Oxytocin/Lactated Ringer's 500 ml @ 500 mls/hr ONCE POST IV ; Start 05/05/18 at 09:30 Oxytocin/Lactated Ringer's 500 ml @ 125 mls/hr POST IV ; Start 05/05/18 at 09:30 Ibuprofen (Motrin) 600 mg ONCE PRN PO md order; Start 05/05/18 at 09:30 Oxycodone/Aspirin (Percodan) 2 tab ONCE PRN PO md order; Start 05/05/18 at 09:30 Oxytocin/Lactated Ringer's 500 ml @ 0 mls/hr ONCE PRN IV prn; Start 05/05/18 at 09:30 Methylergonovine Maleate (Methergine) 0.2 mg ONCE PRN IM md order; Start 05/05/18 at 09:30 Carboprost Tromethamine (Hemabate) 250 mcg ONCE PRN IM md order; Start 05/05/18 at 09:30 Misoprostol (Cytotec) 1,000 mcg ONCE PRN AR md order; Start 05/05/18 at 09:30 Oxytocin/Lactated Ringer's 500 ml @ 0 mls/hr FOR INDUCTION IV Last administered on 05/05/18at 11:08; Admin Dose 1 MLS/HR; Start 05/05/18 at 09:30 Cefazolin Sodium/ Dextrose 50 ml @ 100 mls/hr ONCE ONCE IVPB ; Start 05/05/18 at 17:00; Stop 05/05/18 at 17:29 Meds reviewed: Yes Allergies Coded Allergies: No Known Allergy (Unverified , 05/05/18) Allergies Reviewed: Yes Labs/Studies Labs Reviewed: Reviewed by anesthesiologist Result Diagram: 05/05/18 0952 Laboratory Tests 05/05/18 09:52 Blood Bank Test 05/05/18 09:52 Antibody Screen NEGATIVE Blood Type A POSITIVE Rh Immune Globulin Candidate NO test: Positive Pre-procedure Exam Last vitals Vital Signs Date Temp Pulse Resp B/P (MAP) Pulse Ox O2 O2 Flow FiO2 Time Delivery Rate 05/05/18 98.5 120 17 108/67 07:58 (81) Airway: Adequate mouth opening Mallampati: Mallampati II Teeth: Normal Lung: Normal Heart: Normal ASA Physical Status ASA physical status: 2 Emergency: E Planned Anesthetic Neuraxial: Spinal Planned Pain Management Sub-arachniod narcotics Pre-operative Attestations Prior to commencing anesthesia and surgery, the patient was re-evaluated, there was verification of: *The patient's identity *The results of appropriate recent lab work and preoperative vital signs *The above evaluation not changing prior to induction *Anesthetic plan, risk benefits, alternative and complications discussed with patient/family; questions answered; patient/family understands, accepts and wishes to proceed. DALLAS PETERSON MD May 05, 2018 17:09
[2018-05-05] MEDS ORDERED: METOCLOPRAMIDE 10 MG INJ ONE (17:46)
[2018-05-05] MEDS ORDERED: OXYTOCIN 10 UNIT INJ ONE ×2 (17:46→18:27)
[2018-05-05] MEDS ORDERED: morphine SULFATE/PF (10 MG/10 ML) INJ ONE (17:46)
[2018-05-05] MEDS ORDERED: OXYTOCIN 30 UNITS/LR 500 ML IV ONE (17:46)
[2018-05-05] MEDS ORDERED: ONDANSETRON 4 MG INJ ONE (17:46)
[2018-05-05] MEDS ORDERED: EPHEDrine 25 MG/5 ML SYG ONE (18:27)
--- NOTE | 2018-05-05 18:59 | QN ---
Documentation Comment Patient with onset of profuse vaginal bleeding heart tones appeared reactive Bleeding appears to be bright red Because of ruptured membrane at 35+ weeks and profuse vaginal bleeding will proceed with primary delivery ALEK SHRESTHA MD May 05, 2018 18:59
--- NOTE | 2018-05-05 18:59 | HP ---
Date/Time of Note Date/Time of Note DATE: 05/05/18 TIME: 18:53 OB - History Hx of Present Free Text/Dictation 28-year-old female 2 para 1 at 35+ weeks gestation admitted complaining of spontaneous rupture of membrane at 6:30 AM and onset of labor contractions Last Menstrual Period: August 15, 2017 Estimated Due Date: Jun 03, 2018 : 2 Para: 1 Care: Good Care Ultrasounds: Abnormal US findings (Placenta previa) Obstetrical Complications: Other (Placenta previa) Medical Complications: None Past Family/Social History * Past Medical, Surgical, Family and Obstetric Histories reviewed from chart. Blood Type: A+ Rubella: immune RPR/VDRL: Negative GBS Status: Unknown HBsAG: Negative OB Admission Exam Vital Signs Vital Signs Vital Signs Date Temp Pulse Resp B/P (MAP) Pulse Ox O2 O2 Flow FiO2 Time Delivery Rate 05/05/18 98.5 120 17 108/67 07:58 (81) Physical Exam HEENT: WNL Heart: Rhythm Normal Lungs: Clear, Equal Abdomen: WNL Extremities: Normal Reflexes: Normal Cervical Dilatation: 1cm Effacement: 50% Station: -3 Membranes: Ruptured (Rupture of membrane was confirmed by positive ROM plus) Heart Rate: 140's Accelerations: Accelerations Present Decelerations: No Decelerations Varibility: Marked Contractions on Admission: 6-10 Minutes Apart Date/Time Contractions Began: 6:30 AM 05/05/2018 Frequency of Contractions: Every 610-minute Duration: Over 30 seconds Intensity: Mild Last 72 hours Lab Results CBC & BMP 05/05/18 09:52 OB Assessment/Plan Other Assessment: Possible marginal previa 35 weeks and 5 days Currently does not have vaginal bleeding Spontaneous rupture of membrane which was confirmed patient with marginal placenta previa weeks prior to this admission Other plan: We will try limited duration of Pitocin augmentation Should patient onset of profuse vaginal bleeding will promptly proceed with primary delivery ALEK SHRESTHA MD May 05, 2018 18:59
[2018-05-05] MEDS ORDERED: KETOROLAC 60 MG INJ IM STA (19:04)
--- NOTE | 2018-05-05 19:04 | OPR ---
Operative Report Planned Procedure Free Text/Dictation 28-year-old female for primary section because of possible marginal previa which appeared to be bleeding Procedure date May 05, 2018 Procedure(s) Primary section Performed by see signature line Truck Driver Supervisor: EVARISTO COLLAZO Anesthesiologist: DALLAS PETERSON MD Pre-procedure diagnosis Bleeding marginal placenta previa at 35+ with Spontaneous rupture of membranes [id number] Anesthesia Type: [id number] spinal Post-Procedure Post-procedure diagnosis Status post primary section Findings Live Baby in OT position Marginal placenta previa on the left and posterior segment of the uterus was confirmed by digital examination and observation Normal-appearing right and left fallopian tubes and ovaries Estimated Blood Loss: 500 - 600 mls Specimen(s) none Grafts/Implant(s) none Complication(s) none Pt Condition post procedure: stable Disposition: PACU Procedure Description Under satisfactory anaesthesia a Pfannenstiel incision was made two finge rbreadth above and parallel to the symphysis of pubis. Incision was extended laterally to the border of the Recti muscles on either sides. Incision was carried down with sharp and blunt dissection until fascia was reached. Anterior Recti muscle fascia was incised in mid portion and incision extended laterally to the border of skin incision. Fascia was mobilized from muscle superiorly and Recti muscles were from midline using sharp and blunt dissection. Peritoneum was visualized; Avoiding bowel and bladder it was incised . Incision was extended superiorly and inferiorly. Bladder blade was placed. Posterior peritoneum covering the lower segment of the uterus and lower segment of the uterus were incised. Incision was extended laterally to the border of Round Lig. on either sides and baby was delivered from OT. position . Amniotic fluid appeared clear. Cord blood was obtained and cord had 3 vessels . Placenta location was digitally examined and noticed to be previa with encroachment on the cervical loss. Placenta was delivered spontaneously and appeared intact and complete. Intrauterine cavity was rubbed with a laparotomy sponge. Uterine incision was closed in 2 layers using running stitches of No1 Monocryl. Hemostasis appeared secure. Ovaries and Fallopian tubes were within normal limits. Announcing needle, lap sponge and instrument count to be correct abdomen was closed in layers as follows: Peritoneum and Recti muscles with running stitches of 2-0 Vicryl. Fascia with running stitch of No 1 PDS. Subcutaneous tissue with running stitches of 2-0 Monocryl and skin was closed using landon. Patient tolerated the procedure well and was transferred to [facility] in good condition. ALEK SHRESTHA MD May 05, 2018 19:04
[2018-05-05] MEDS ORDERED: DIPHENHYDRAMINE 50 MG INJ IV PRN (19:30)
[2018-05-05] MEDS ORDERED: AZITHROMYCIN 500MG/NS (PMX) 250 ML IVPB ONE (19:30)
[2018-05-05] MEDS ORDERED: ONDANSETRON 4 MG INJ IV PRN (19:30)
[2018-05-05] MEDS ORDERED: EPHEDrine SULFATE 50 MG/5 ML SYG IV PRN (19:30)
[2018-05-05] MEDS ORDERED: morphine SULFATE/PF (10 MG/10 ML) INJ SPINAL ONE (19:30)
[2018-05-05] MEDS ORDERED: morphine 2 MG INJ IV PRN ×2 (19:30)
[2018-05-05] MEDS ORDERED: NALOXONE (0.4 MG/ML) INJ IV PRN (19:30)
[2018-05-05] MEDS: KETOROLAC 30 MG INJ IV PRN (19:41)
[2018-05-05 21:30] VITALS: BP 109/67; PULSE 87; RESP 18
--- NOTE | 2018-05-05 21:30 | NUR ---
RECEIVED PT FROM L&D IN STABLE CONDITION. NO DISTRESS NOTED. FUNDUS FIRM WITH MODERATED LOCHIA NOTED. MOHAMUD DRAINING WELL
[2018-05-05] MEDS ORDERED: LACTATED RINGER'S 1,000 ML IV SCH (22:36)
[2018-05-05] MEDS ORDERED: LANOLIN HPA 1 PKT TOP PRN (23:00)
[2018-05-05] MEDS ORDERED: NA PHOSPHATE/BIPHOS 133 ML ENEMA PR PRN (23:00)
[2018-05-05] MEDS: CEFAZOLIN 2 GM/50 ML (PMX) 50 ML IVPB SCH (23:28)
[2018-05-06] VITALS: BP 100/62; PULSE 80; RESP 18
[2018-05-06] MEDS: CLINDAMYCIN 300 MG CAP PO SCH ×4 (00:18→18:49)
--- NOTE | 2018-05-06 02:37 | PAC ---
Date/Time of Note Date/Time of Note DATE: 05/06/18 TIME: 02:37 Post-Anesthesia Notes Post-Anesthesia Note Last documented vital signs Vital Signs Date Temp Pulse Resp B/P (MAP) Pulse Ox O2 O2 Flow FiO2 Time Delivery Rate 05/06/18 98.0 80 18 100/62 98 Room Air 00:00 (75) Activity: WNL Respiratory function: WNL Cardiovascular function: WNL Mental status: Baseline Pain reasonably controlled: Yes Hydration appropriate: Yes Nausea/Vomiting absent: Yes DALLAS PETERSON MD May 06, 2018 02:37
[2018-05-06] MEDS: KETOROLAC 30 MG INJ IV PRN ×3 (03:36→15:31)
[2018-05-06 04:00] VITALS: BP 96/62; PULSE 81
--- NOTE | 2018-05-06 05:29 | NUR ---
EOSS: PT IS IN STABLE CONDITION. NO DISTRESS NOTED. FUNDUS FIRM WITH SMALL TO MODERATE AMOUNT LOCHIA NOTED. MOHAMUD CATHETER DRAINING. BONDING WELL WITH BABY.
[2018-05-06] MEDS: CEFAZOLIN 2 GM/50 ML (PMX) 50 ML IVPB SCH ×2 (06:19→14:59)
[2018-05-06] MEDS: LACTATED RINGER'S 1,000 ML IV SCH ×2 (07:01→15:35)
[2018-05-06 07:35] VITALS: BP 100/62; PULSE 87; RESP 20
[2018-05-06] MEDS: SENNA/DOCUSATE NA (8.6MG/50MG) TAB PO SCH ×2 (09:31→21:41)
[2018-05-06] MEDS ORDERED: BISACODYL 10 MG SUPP PR ONE ×2 (10:30→18:47)
[2018-05-06 12:03] VITALS: BP 95/60; PULSE 77; RESP 16
[2018-05-06 15:51] VITALS: BP 106/63; PULSE 82; RESP 18
--- NOTE | 2018-05-06 17:36 | NUR ---
EOSS; BOTTLE FEEDING, STATES SHE DOES NOT WANT TO BREAST FEED, DUE TO VOID, AMBULATING WELL WITH STEADY GAIT, ABDOMINAL DRESSING CLEAN DRY AND INTACT.
--- NOTE | 2018-05-06 17:59 | OPPN ---
Date/Time of Note Date/Time of Note DATE: 05/06/18 TIME: 17:49 Anesthesia Follow up Anesthesia Follow up Last documented vital signs Vital Signs Date Temp Pulse Resp B/P (MAP) Pulse Ox O2 O2 Flow FiO2 Time Delivery Rate 05/06/18 98.4 82 18 106/63 97 Room Air 15:51 (77) Respiratory function: WNL Cardiovascular function: WNL Comments Postoperative pain is in good control with spinal duramorph with intermittent use of opioid supplement. No other specific complaint. Vital signs stable. DALLAS PETERSON MD May 06, 2018 17:59
--- NOTE | 2018-05-06 18:12 | PN ---
Date/Time of Note Date/Time of Note DATE: 05/06/18 TIME: 18:10 Assessment/Plan VTE Prophylaxis VTE Prophylaxis Intervention: ambulation Lines/Catheters IV Catheter Type (from Nrsg): Peripheral IV Assessment/Plan Assessment/Plan Status post postop day #1 Advance diet and ambulate Continue to monitor vital signs Subjective 24 Hr Interval Summary No bowel movement but passing flatus Constitutional: no complaints, improved, ambulates, BM, flatus, urine output Pain Control: well controlled Exam/Review of Systems Vital Signs Vitals Vital Signs Date Temp Pulse Resp B/P (MAP) Pulse Ox O2 O2 Flow FiO2 Time Delivery Rate 05/06/18 98.4 82 18 106/63 97 Room Air 15:51 (77) Intake and Output 05/05/18 05/05/18 05/06/18 1515:00 23:00 07:00 IntakeIntake Total 1100 ml 1100 ml OutputOutput Total 100 ml 1503 ml 600 ml BalanceBalance -100 ml -403 ml 500 ml Exam Free Text/Dictation Abdomen is soft with present bowel sounds Incision is covered Constitutional: alert, oriented, well developed Psych: no complaints, nl mood/affect Head: normocephalic, atraumatic Eyes: nl conjunctiva, EOMI, nl lids, nl sclera ENMT: nl external ears & nose, nl lips & teeth, nl nasal mucosa & septum, mucosa pink and moist Neck: supple, non-tender Respiratory: clear to auscultation, normal air movement Cardiovascular: regular rate and rhythm, nl pulses Gastrointestinal: soft, nl liver, spleen, non-tender Musculoskeletal: nl extremities to inspection, nl gait and stance Extremities: normal pulses Neurological: HAND [employer] II-XII intact, nl mental status, nl speech, nl strength Skin: nl turgor, rash or lesions Lymph: nl lymph nodes Results Result Diagram: 05/06/18 0623 ALEK SHRESTHA MD May 06, 2018 18:12
[2018-05-06 19:30] VITALS: BP 110/69; PULSE 89; RESP 19
[2018-05-06] MEDS: IBUPROFEN 800 MG TAB PO SCH (21:41)
[2018-05-07] MEDS: CLINDAMYCIN 300 MG CAP PO SCH ×4 (00:01→17:53)
[2018-05-07] MEDS: GUAIFENESIN 20 MG/ML 5ML CUP PO PRN ×3 (00:01→19:47)
[2018-05-07] MEDS: HYDROCODONE/APAP (5/325) TAB PO PRN ×2 (00:27→16:19)
[2018-05-07 03:30] VITALS: BP 97/66; PULSE 72; RESP 19
--- NOTE | 2018-05-07 05:00 | NUR ---
EOSS: vital signs stable,voiding without difficulty, pain controlled with motrin and norco,bonding well with her baby,hourly rounding and rounding every 30 minutes between [id number] maintained.
[2018-05-07] MEDS: IBUPROFEN 800 MG TAB PO SCH ×3 (05:30→21:36)
[2018-05-07 08:00] VITALS: BP 94/58; PULSE 83; RESP 18
[2018-05-07] MEDS: SENNA/DOCUSATE NA (8.6MG/50MG) TAB PO SCH ×2 (08:17→20:42)
[2018-05-07] MEDS: OXYCODONE/ACETAMINOPHEN (5/325) TAB PO PRN ×2 (09:23→20:43)
[2018-05-07] MEDS ORDERED: ACETAMINOPHEN 325 MG TAB PO SCH (14:00)
[2018-05-07] MEDS ORDERED: ACET325T33 PO (14:15)
--- NOTE | 2018-05-07 14:32 | DS ---
Date/Time of Note Date/Time of Note Home today or next day DATE: 05/07/18 TIME: 14:30 Obstetrical Discharge Record Final Diagnosis Final Diagnosis: delivered Other Final Diagnosis Status post primary section Section Section: Primary Primary Indication Possible placenta previa bleeding Condition on Discharge Physical Assessment Last Vitals: See nurse's notes Voiding: Yes Bowel Movement: Yes Breast: Soft, non-tender, Filling Fundus: Firm Abdomen and Incision: Abdomen is soft with present bowel sounds and incision appears to be healing well without induration and or erythema Episiotomy: Not applicable Calf Tenderness: No Patient Condition: Good ALEK SHRESTHA MD May 07, 2018 14:32
--- NOTE | 2018-05-07 14:34 | DS ---
Date/Time of Note Date/Time of Note DATE: 05/07/18 TIME: 14:32 Discharge Summary Admission/Discharge Info Admit Date/Time May 05, 2018 at 09:10 Discharge Date/Time May 07, 2018 or May 08, 2018 Discharge Diagnosis Status post delivery Patient Condition: Good Procedures Primary section Hx of Present Illness 28-year-old female underwent primary section because of profuse bleeding of a low-lying placenta and or marginal placenta previa Hospital Course Hospital course remained uncomplicated Patient tolerated diet well and was ambulating without complications Discharge home on his second or third day with good prognosis and condition Home Meds Active Scripts Acetaminophen* (Tylenol*) 325 Mg Tablet, 650 MG PO Q6H, #60 TAB 0 Refills Prov:ALEK SHRESTHA MD 05/07/18 Reported Medications Vit No.124/Iron/FA ( Vitamin Tablet) 1 Each Tablet, 1 EACH PO, TAB 11/24/16 Discontinued Scripts Nifedipine* (Procardia*) 10 Mg Capsule, 20 MG PO Q6, #60 CAP 0 Refills Prov:ALEK SHRESTHA MD 04/29/18 Follow-up Plan Refer to clinic in 2-3 days for staple removal and follow-up Primary Care Provider Time spent on discharge: > 30 minutes ALEK SHRESTHA MD May 07, 2018 14:34
[2018-05-07 16:00] VITALS: BP 96/51; PULSE 79; RESP 18
--- NOTE | 2018-05-07 18:47 | NUR ---
EOSS. PT, IS IN STABLE CONDITION . FUNDUS FIRM NORMAL BLEEDING . NO COMPLAINED OF PAIN OR ANY PROBLEM, . PT, IS DEPENDED ALL OF TIME SHE WANTS NURSE HELPED HER TO BATHROOM OR CHANGED BABY DIAPER FEED THE BABY TRIED TO HELPED PT, TO BE INDEPENDENT . WE HAVE DISCHARGE ORDER FOR PT, TO GO HOME TOMORROW .
[2018-05-07 20:00] VITALS: BP 98/57; PULSE 92; RESP 18
[2018-05-08] MEDS: CLINDAMYCIN 300 MG CAP PO SCH ×3 (00:07→13:35)
[2018-05-08] MEDS: GUAIFENESIN 20 MG/ML 5ML CUP PO PRN (00:07)
[2018-05-08] MEDS: HYDROCODONE/APAP (5/325) TAB PO PRN (00:59)
[2018-05-08 04:00] VITALS: BP 108/72; PULSE 96; RESP 19
[2018-05-08] MEDS: IBUPROFEN 800 MG TAB PO SCH ×3 (05:37→14:20)
--- NOTE | 2018-05-08 06:27 | NUR ---
EOSS: PATIENT IN STABLE CONDITION. DUE TO BRING IN CARSEAT FOR CHALLENGE BEFORE DISCHARGE. BONDING WELL WITH INFANT. ASKS FOR ASSISTANCE TO FEED FORMULA VIA BOTTLE AND CHANGE INFANT'S DIAPER OCCASIONALLY. PATIENT AMBULATES WELL AND IS VOIDING, PASSING GAS, DUE TO BM. PATIENT IS AFEBRILE.
[2018-05-08 08:00] VITALS: BP 90/60; PULSE 71; RESP 18
[2018-05-08] MEDS ORDERED: DIPHTH/TET/ACEL PERTUSS (ADULT) 0.5 ML VIAL IM* ONE (09:00)
[2018-05-08] MEDS ORDERED: MEASLES,MUMPS,RUBELLA VACCINE INJ SC* ONE (09:00)
[2018-05-08] MEDS: OXYCODONE/ACETAMINOPHEN (5/325) TAB PO PRN (10:09)
[2018-05-08] MEDS: SENNA/DOCUSATE NA (8.6MG/50MG) TAB PO SCH (10:09)
[2018-05-08 16:00] VITALS: BP 114/76; PULSE 82; RESP 18
--- NOTE | 2018-05-08 16:30 | NUR ---
DISCHARGE TEACHING COMPLETED FOR MOM AND BABY. I HAVE REPEATED THESE INSTRUCTIONS NUMEROUS TIMES FOR BOTH MOM AND BABY. MOM CONTINUES TO TAKE SUPPLIES AND THEN TELL EVERYONE SHE HAS NO DIAPERS, BABY BLANKETS, OR FORMULA. WOUND CARE INSTRUCTIONS GIVEN. ID BANDS WERE MATCHED AND CUT AT TIME OF DISCHARGE. CORD CLAMP AND SENSOR WERE REMOVED. MOM AND BABY WERE DISCHARGED HOME IN STABLE CONDITION PER WHEEL CHAIR .
== END 2018-05-08 16:40 | disposition home or self-care (01) | DRG 786 ==
LOC: L-D 07:49 → OBT 07:49 → L-D 09:10 → MERGE 09:10 → OBT 09:21 → L-D 17:32 → PP1 21:25
PROVIDERS: ADMIT Obstetrics & Gynecology; ATTEND Obstetrics & Gynecology
PROC: 10D00Z1 Extraction of Products of Conception, Low, Open Approach (ICD-10-PCS; principal; 2018-05-05 17:30)
DX: O69.4XX0 Labor and delivery complicated by vasa previa, not applicable or unspecified (principal); O44.53 Low lying placenta with hemorrhage, third trimester; Z3A.35 35 weeks gestation of pregnancy; Z37.0 Single live birth
CPT/HCPCS: 76815; 76817; 76818; 81001; 84112; 85025; 85610; 85730; 86592; 86850; 86900; 86901; 87340; 99464; G0463; J0290; J0456; J0690; J1200; J1885; J2274; J2405; J2590; J2765; J7120